=== PATIENT | male | born 1930 | race Caucasian/White ===

== ENCOUNTER 2017-12-11 17:09 | Inpatient (IN) | payer MEDICARE, OTHER ==
[~2017-12-11] VITALS: Ht 177.8 cm; Wt 81.1 kg
[2017-12-11 18:25] VITALS: BP 133/87; PULSE 69; RESP 19; TEMP 98.6; O2SAT 97
[2017-12-11 18:43] LABS: AUTOMATED NEUTROPHIL # 3.9 TH/MM3 (1.8-7.7); BASOPHIL # 0.1 TH/MM3 (0-0.2); BASOPHIL % 0.9 % (0.0-2.0); EOSINOPHIL # 0.1 TH/MM3 (0-0.4); EOSINOPHIL % 2.3 % (0.0-4.0); HEMATOCRIT 40.2 % (39.0-51.0); HEMOGLOBIN 13.8 GM/DL (13.0-17.0); LYMPH % 19.5 % (9.0-44.0); LYMPHOCYTE # 1.2 TH/MM3 (1.0-4.8); MEAN CELL VOLUME 91.5 FL (80.0-100.0); MEAN CORPUSCULAR HEMOGLOBIN 31.3 PG (27.0-34.0); MEAN CORPUSCULAR HGB CONC 34.2 % (32.0-36.0); MEAN PLATELET VOLUME 7.1 FL (7.0-11.0); MONO % 11.7 % (0.0-8.0); MONOCYTE # 0.7 TH/MM3 (0-0.9); NEUT % 65.6 % (16.0-70.0); PLATELET COUNT 277 TH/MM3 (150-450); RED BLOOD COUNT 4.39 MIL/MM3 (4.50-5.90); RED CELL DISTRIBUTION WIDTH 13.5 % (11.6-17.2); WHITE BLOOD COUNT 5.9 TH/MM3 (4.0-11.0)
[2017-12-11 18:56] LABS: AST (GOT) 21 U/L (15-37); BICARBONATE 26.3 MEQ/L (21.0-32.0); BLOOD UREA NITROGEN 22 MG/DL (7-18); CALCIUM 9.2 MG/DL (8.5-10.1); CHLORIDE 107 MEQ/L (98-107); GLOMERULAR FILTRATION RATE 58 ML/MIN (>89); GLUCOSE,RANDOM 102 MG/DL (74-106); SODIUM (NA) 139 MEQ/L (136-145)
[2017-12-11 19:05] LABS: ALKALINE PHOSPHATASE 83 U/L (45-117); ALT (GPT) 20 U/L (12-78); TOTAL BILIRUBIN ADULT 0.5 MG/DL (0.2-1.0); TOTAL PROTEIN 8.1 GM/DL (6.4-8.2)
[2017-12-11 19:06] LABS: ACETAMINOPHEN LESS THAN 2.0 MCG/ML (10.0-30.0)
--- NOTE | 2017-12-11 19:45 | PD ---
HPI Chief Complaint: Psychiatric Symptoms Time Seen by Provider: 19:33 Travel History International Travel<30 days: No Contact w/Intl Traveler<30days: No Traveled to known affect area: No History of Present Illness HPI 87-year-old male was Kristian acted and brought in for evaluation. Patient was having combative behavior, outbursts and anger behavior at home associate with dementia. Patient was Kristian acted and brought in for evaluation. Patient denies any headache. Patient denies any chest pain or shortness of breath. Patient denies abdominal pain. Patient denies any medical problem. Patient denies any alcohol or drug abuse. PFSH Past Medical History COPD: Yes Dementia: Yes Diminished Hearing: Yes Respiratory: Yes Tetanus Vaccination: Unknown Past Surgical History Surgical History: No Previous Surgery Eye Surgery: Yes (cataracts) Social History Alcohol Use: No Tobacco Use: No Substance Use: No Allergies-Medications (Allergen,Severity, Reaction): Coded Allergies: No Known Allergies (Verified Allergy, Mild, 12/11/17) Reported Meds & Prescriptions Reported Meds & Active Scripts Active Active Prescriptions or Reported Medications Unobtainable Review of Systems General / Constitutional: No: Fever Eyes: No: Visual changes HENT: No: Headaches Cardiovascular: No: Chest Pain or Discomfort Respiratory: No: Shortness of Breath Gastrointestinal: No: Abdominal Pain Genitourinary: No: Dysuria Musculoskeletal: No: Pain Skin: No Rash Neurologic: No: Weakness Psychiatric: No: Depression Endocrine: No: Polydipsia Hematologic/Lymphatic: No: Easy Bruising Physical Exam Narrative GENERAL: Well-nourished, well-developed patient. SKIN: Focused skin assessment warm/dry. HEAD: Normocephalic. EYES: No scleral icterus. No injection or drainage. NECK: Supple, trachea midline. No JVD or lymphadenopathy. CARDIOVASCULAR: Regular rate and rhythm without murmurs, gallops, or rubs. RESPIRATORY: Breath sounds equal bilaterally. No accessory muscle use. GASTROINTESTINAL: Abdomen soft, non-tender, nondistended. MUSCULOSKELETAL: No cyanosis, or edema. BACK: Nontender without obvious deformity. No CVA tenderness. Neurologic exam: Patient is awake and alert oriented to place and person. No obvious focal neurological deficit. Data Data Last Documented VS Vital Signs Date Time Temp Pulse Resp B/P (MAP) Pulse Ox O2 Delivery O2 Flow Rate FiO2 12/11/17 18:25 98.6 69 19 133/87 (102) 97 Room Air Orders Orders Complete Blood Count With Diff (12/11/17 17:54) Comprehensive Metabolic Panel (12/11/17 17:54) Thyroid Stimulating Hormone (12/11/17 17:54) Urinalysis - C+S If Indicated (12/11/17 17:54) Psych Screen (12/11/17 17:54) Drug Screen, Random Urine (12/11/17 17:54) Alcohol (Ethanol) (12/11/17 17:54) Salicylates (Aspirin) (12/11/17 17:54) Tylenol (Acetaminophen) (12/11/17 17:54) Labs Laboratory Tests Test 12/11/17 18:30 White Blood Count 5.9 TH/MM3 Red Blood Count 4.39 MIL/MM3 Hemoglobin 13.8 GM/DL Hematocrit 40.2 % Mean Corpuscular Volume 91.5 FL Mean Corpuscular Hemoglobin 31.3 PG Mean Corpuscular Hemoglobin Concent 34.2 % Red Cell Distribution Width 13.5 % Platelet Count 277 TH/MM3 Mean Platelet Volume 7.1 FL Neutrophils (%) (Auto) 65.6 % Lymphocytes (%) (Auto) 19.5 % Monocytes (%) (Auto) 11.7 % Eosinophils (%) (Auto) 2.3 % Basophils (%) (Auto) 0.9 % Neutrophils # (Auto) 3.9 TH/MM3 Lymphocytes # (Auto) 1.2 TH/MM3 Monocytes # (Auto) 0.7 TH/MM3 Eosinophils # (Auto) 0.1 TH/MM3 Basophils # (Auto) 0.1 TH/MM3 CBC Comment DIFF FINAL Differential Comment Blood Urea Nitrogen 22 MG/DL Creatinine 1.20 MG/DL Random Glucose 102 MG/DL Total Protein 8.1 GM/DL Albumin 4.0 GM/DL Calcium Level 9.2 MG/DL Alkaline Phosphatase 83 U/L Aspartate Amino Transf (AST/SGOT) 21 U/L Alanine Aminotransferase (ALT/SGPT) 20 U/L Total Bilirubin 0.5 MG/DL Sodium Level 139 MEQ/L Potassium Level 3.9 MEQ/L Chloride Level 107 MEQ/L Carbon Dioxide Level 26.3 MEQ/L Anion Gap 6 MEQ/L Estimat Glomerular Filtration Rate 58 ML/MIN Thyroid Stimulating Hormone 3rd Gen 1.720 uIU/ML Salicylates Level LESS THAN 1.7 MG/DL Acetaminophen Level LESS THAN 2.0 MCG/ML Ethyl Alcohol Level LESS THAN 3 MG/DL MDM Medical Decision Making Medical Screen Exam Complete: Yes Emergency Medical Condition: Yes Differential Diagnosis Differential diagnoses including acute exacerbation of dementia symptoms, psychosis, schizophrenia. Narrative Course 87-year-old male was Townsend acted for outbursts and anger behavior. History of dementia. Scripts Unable to Obtain Active Prescriptions or Reported Meds Suhail Lozada MD Dec 11, 2017 19:45
[2017-12-11] MEDS ORDERED: LORazepam 2 MG/ML VIAL IM ONE (20:30)
[2017-12-11] MEDS ORDERED: HALOPERIDOL LACTATE 5 MG/ML AMP IM ONE (20:30)
[2017-12-11 22:20] LABS: BILIRUBIN, URINE NEG (NEG); BLOOD, URINE NEG (NEG); GLUCOSE,URINE NEG (NEG); KETONE, URINE NEG (NEG); NITRITE,URINE NEG (NEG); PH, URINE 5.5 (5.0-8.5); URINE COLOR LIGHT-YELLOW (YELLW/STRAW); URINE LEUKOCYTE ESTERASE NEG (NEG)
[2017-12-12] MEDS ORDERED: HALOPERIDOL LACTATE 5 MG/ML AMP IM ONE (01:15)
[2017-12-12 03:41] VITALS: BP 155/74; PULSE 84; RESP 16; O2SAT 97
[2017-12-12 05:04] VITALS: BP 131/60; PULSE 64; RESP 16; TEMP 97.5; O2SAT 94
[2017-12-12] MEDS ORDERED: LORazepam 2 MG/ML VIAL - age > 65 yrs IM PRN (05:45)
[2017-12-12] MEDS ORDERED: LORazepam 0.5 MG TAB age > 65 yrs PO PRN (05:45)
[2017-12-12] MEDS ORDERED: ACETAMINOPHEN 325 MG TAB PO PRN (05:45)
[2017-12-12] MEDS ORDERED: diphenhydrAMINE HCL 50 MG/ML VIAL IM PRN (05:45)
[2017-12-12] MEDS ORDERED: diphenhydrAMINE HCL 50 MG CAP PO PRN (05:45)
[2017-12-12] MEDS ORDERED: diphenhydrAMINE HCL 50 MG/ML VIAL - HS PRN IM (05:45)
[2017-12-12] MEDS ORDERED: diphenhydrAMINE HCL 50 MG CAP - HS PRN PO (05:45)
[2017-12-12] MEDS ORDERED: MAGNESIUM HYDROXIDE SUSP 30 ML CUP PO PRN (05:45)
[2017-12-12] MEDS ORDERED: ALUMINUM/MAGNESIUM/SIMETH 30 ML CUP PO PRN (05:45)
[2017-12-12] MEDS ORDERED: hydrOXYzine HCL 50 MG TAB PO PRN (05:45)
[2017-12-12] MEDS: NICOTINE 21 MG/24 HR PATCH T-DERMAL SCH (09:00)
[2017-12-12] MEDS ORDERED: GALA12TA PO (10:48)
[2017-12-12] MEDS ORDERED: PRAZ2CAP PO (10:48)
[2017-12-12] MEDS ORDERED: MULT1TAB46 (10:48)
[2017-12-12] MEDS ORDERED: CITA20TA4 PO (10:48)
[2017-12-12] MEDS ORDERED: LOVA40TA PO (10:48)
[2017-12-12] MEDS ORDERED: RISP0.252 PO (10:48)
[2017-12-12] MEDS ORDERED: RANI150T PO (10:48)
[2017-12-12] MEDS ORDERED: GABA600T PO (10:48)
[2017-12-12] MEDS ORDERED: LORA1TAB12 PO (10:48)
[2017-12-12] MEDS ORDERED: TEMA15CA PO (10:48)
[2017-12-12] MEDS ORDERED: HALOPERIDOL 5 MG TAB PO ONE (12:30)
--- NOTE | 2017-12-12 12:59 | HHI.HP ---
Provisional Diagnosis Admission Date Dec 12, 2017 at 02:55 [place] I. Dementia with behavioral disturbances, Alzheimer's dementia late onset Certification of Person's Competence To Provide Express and Informed Consent I have personally examined Rolf Martinez , a person being served at [facility] on, Dec 12, 2017 12:43. Express and informed consent means consent voluntarily given in writing, by a competent person, after sufficient explanation and disclosure of the subject matter involved to enable the person to make a knowing and willful decision without any element of force, fraud, deceit, duress, or other form of constraint or coercion. This person is 18 years of age or older, is not now known to be incompetent to consent to treatment with a guardian advocate, and does not have a health care surrogate or proxy currently making medical treatment decisions. I have found this person to be one of the following: [] Competent to provide express and informed consent, as defined above, for voluntary admission to this facility and is competent to provide express and informed consent for treatment. He/she has the consistent capacity to make well reasoned, willful, and knowing decisions concerning his or her medical or mental health treatment. The person fully and consistently understands the purpose of the admission for examination/placement and is fully capable of personally exercising all rights assured [place] Incompetent to provide express and informed consent to voluntary admission , and this is incompetent to provide express and informed consent to treatment. The person must be transferred to involuntary status and a petition for a guardian advocate filed with the Circuit Court. [] Refusing to provide express and informed consent to voluntary admission but is competent to provide express and informed consent for treatment. The person must be discharged or transferred to involuntary status. Form shall be completed within 24 hours of a person's arrival at the receiving facility and filed in the clinical record of each person: 1. Admitted on a voluntary basis 2. Permitted to provide express and informed consent to his/her own treatment 3. Allowed to transfer from involuntary to voluntary status 4. Prior to permitting a person to consent to his or her own treatment after having been previously found incompetent to consent to treatment. History of Present Illness Capacity: Lacks Capacity HPI Patient is an 87-year-old white male who comes here under Townsend act by the [facility]'s office dated 12/11/17 at 1544 hrs. document reviewed stating this is the second time I responded to this address reference the subject having bad outbursts and anger issues associated with dementia elderly female has attempted to work with [employer] and other resources however still has not been able to sign anything in place for further assistance. Patient seen screened in the ED urine toxicology negative. At the present time patient sitting quietly in chair in day room nurse Kaiden present throughout session patient's calm with me though he has recently received a when necessary of Haldol and Benadryl for out of control behavior. Is calm but this time though diffusely confused to place time and situation has no recollection of his behaviors that brought him to this place. He continues to show exits seeking behavior is getting somewhat irritable with this. He denies suicidality denies voices or visions, denies past psychiatric contact. 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 At this time patient meets criteria for inpatient psychiatric hospitalization of the Townsend act I'll do first opinion request second opinion. It really does not have capacity thus I'll ask for healthcare surrogate and guardian advocate. He did need to meet with patient's caregiver and discuss with her diagnosis medication treatment and discharge planning and placement Review of Systems ROS Limitations: Altered Mental Status Except as stated in HPI: all other systems reviewed are Neg Past Psych History Psychological trauma history Difficult to ascertain due to cognitive deficit Violence risk - others (6 mos) Patient showing aggressive behavior towards caregiver Violence risk - self (6 mos) Low Substance Abuse History Drugs/Alcohol past 12 months Unknown at this time Past Family Social History Coded Allergies: No Known Allergies (Verified Allergy, Mild, 12/11/17) Reported Medications Risperidone (Risperidone) 0.25 Mg Tab, 0.25 MG PO TID, #30 TAB 0 Refills 12/12/17 Prazosin (Prazosin) 2 Mg Cap, 2 MG PO HS for Blood Pressure Management, #60 CAP 0 Refills 12/12/17 Temazepam (Temazepam) 15 Mg Cap, 15 MG PO HS Y for INSOMNIA, #30 CAP 0 Refills 12/12/17 Ranitidine (Ranitidine) 150 Mg Tab, 150 MG PO BID for Heartburn Management, #60 TAB 0 Refills 12/12/17 Lovastatin (Lovastatin) 40 Mg Tab, 40 MG PO HS for Cholesterol Management, #30 TAB 0 Refills 12/12/17 Multiple Vitamin (Multi Vitamin Daily) 1 Tab Tab 12/12/17 Lorazepam (Lorazepam) 1 Mg Tab, 1 MG PO BID, TAB 0 Refills 12/12/17 Galantamine (Galantamine) 12 Mg Tab, 24 MG PO DAILY for Alzheimer's Dementia, # 60 TAB 0 Refills 12/12/17 Gabapentin (Gabapentin) 600 Mg Tab, 600 MG PO BID, #60 TAB 0 Refills 12/12/17 Citalopram (Citalopram) 20 Mg Tab, 20 MG PO DAILY for Control Depression, #30 TAB 0 Refills 12/12/17 Current Medications Medications (Trade) Dose Ordered Sig/Alek Route Start Time Stop Time Status Last Admin (Ativan) 0.5 mg Q12H PRN PO 12/12/17 05:45 Future Hold (Ativan Inj) 0.5 mg Q12H PRN IM 12/12/17 05:45 Future Hold (Atarax) 50 mg Q6H PRN PO 12/12/17 05:45 Future Hold (Benadryl) 50 mg Q6H PRN PO 12/12/17 05:45 Future Hold (Benadryl Inj) 50 mg Q6H PRN IM 12/12/17 05:45 Future Hold (Benadryl) 50 mg HS PRN PO 12/12/17 05:45 Future Hold (Benadryl Inj) 50 mg HS PRN IM 12/12/17 05:45 Future Hold (Tylenol) 650 mg Q4H PRN PO 12/12/17 05:45 (Milk Of Magnesia Liq) 30 ml DAILY PRN PO 12/12/17 05:45 (Mag-Al Plus Susp Liq) 30 ml Q6H PRN PO 12/12/17 05:45 (Habitrol 21 Mg Patch.24 Hr) 1 patch DAILY T-DERMAL 12/12/17 09:00 Miscellaneous Information 1 HS T-DERMAL 12/12/17 21:00 Family Psych History Unknown at this time Social History Patient lives with caregiver Patient's Strengths (min. 2) Patient has good supporting community with caregiver, patient verbal Physical Exam Patient medically cleared ED patient sitting quietly in chair in dayroom he is in no acute distress, no respiratory distress, no complaints of abdominal pain. Patient moving all 4 extremities without difficulty Vital Signs Vital Signs Date Time Temp Pulse Resp B/P (MAP) Pulse Ox O2 Delivery O2 Flow Rate FiO2 12/12/17 05:04 97.5 64 16 131/60 (83) 94 12/12/17 03:41 Room Air I/O 12/12/17 12/12/17 12/13/17 08:00 16:00 00:00 Intake Total 0 ml Balance 0 ml Lab Results Test 12/11/17 18:30 12/11/17 22:07 White Blood Count 5.9 TH/MM3 Red Blood Count 4.39 MIL/MM3 Hemoglobin 13.8 GM/DL Hematocrit 40.2 % Mean Corpuscular Volume 91.5 FL Mean Corpuscular Hemoglobin 31.3 PG Mean Corpuscular Hemoglobin Concent 34.2 % Red Cell Distribution Width 13.5 % Platelet Count 277 TH/MM3 Mean Platelet Volume 7.1 FL Neutrophils (%) (Auto) 65.6 % Lymphocytes (%) (Auto) 19.5 % Monocytes (%) (Auto) 11.7 % Eosinophils (%) (Auto) 2.3 % Basophils (%) (Auto) 0.9 % Neutrophils # (Auto) 3.9 TH/MM3 Lymphocytes # (Auto) 1.2 TH/MM3 Monocytes # (Auto) 0.7 TH/MM3 Eosinophils # (Auto) 0.1 TH/MM3 Basophils # (Auto) 0.1 TH/MM3 CBC Comment DIFF FINAL Differential Comment Blood Urea Nitrogen 22 MG/DL Creatinine 1.20 MG/DL Random Glucose 102 MG/DL Total Protein 8.1 GM/DL Albumin 4.0 GM/DL Calcium Level 9.2 MG/DL Alkaline Phosphatase 83 U/L Aspartate Amino Transf (AST/SGOT) 21 U/L Alanine Aminotransferase (ALT/SGPT) 20 U/L Total Bilirubin 0.5 MG/DL Sodium Level 139 MEQ/L Potassium Level 3.9 MEQ/L Chloride Level 107 MEQ/L Carbon Dioxide Level 26.3 MEQ/L Anion Gap 6 MEQ/L Estimat Glomerular Filtration Rate 58 ML/MIN Thyroid Stimulating Hormone 3rd Gen 1.720 uIU/ML Salicylates Level LESS THAN 1.7 MG/DL Acetaminophen Level LESS THAN 2.0 MCG/ML Ethyl Alcohol Level LESS THAN 3 MG/DL Urine Color LIGHT-YELLOW Urine Turbidity CLEAR Urine pH 5.5 Urine Specific [place] 1.007 Urine Protein NEG mg/dL Urine Glucose (UA) NEG mg/dL Urine Ketones NEG mg/dL Urine Occult Blood NEG Urine Nitrite NEG Urine Bilirubin NEG Urine Urobilinogen LESS THAN 2.0 MG/DL Urine Leukocyte Esterase NEG Urine RBC 2 /hpf Urine WBC LESS THAN 1 /hpf Microscopic Urinalysis Comment CULT NOT INDICATED Urine Opiates Screen NEG Urine Barbiturates Screen NEG Urine Amphetamines Screen NEG Urine Benzodiazepines Screen NEG Urine Cocaine Screen NEG Urine Cannabinoids Screen NEG Mental Status Examination Appearance: Dirty Consciousness: Alert Orientation: Person Motor Activity: Normal gait Speech: Unremarkable Language: Adequate Fund of Knowledge: Adequate Attention and Concentration: Easily Distracted Memory: Impaired Mood: Other (euthymic to somewhat irritable and mildly oppositional) Affect: Other (good range and intensity) Thought Process & Associations: Disorganized Thought Content: Other (disorganized) Hallucination Type: None Delusion Type: None Suicidal Ideation: No Suicidal Plan: No Suicidal Intention: No Homicidal Ideation: No Homicidal Plan: No Homicidal Intention: No Insight: Poor Judgment: Poor Assessment & Plan Problem List: (1) DEMENTIA IN OTH DISEASES CLASSD ELSWHR W BEHAVIORAL DISTURB ICD Codes: F02.81 - DEMENTIA IN OTH DISEASES CLASSD ELSWHR W BEHAVIORAL DISTURB (2) ALZHEIMER'S DISEASE WITH LATE ONSET ICD Codes: G30.1 - ALZHEIMER'S DISEASE WITH LATE ONSET Assessment & Plan Estimated LOS: 5-7 days at this time patient meets Townsend criteria I'll lift first opinion request second opinion I also feel he patient does not have capacity thus I'll ask for healthcare surrogate and guardian advocate. We need to meet with patient's caregiver to discuss treatment efforts and appointment made finding appropriate placement for this gentleman Discharge Planning To be determined Request HC Surrog/Guard Advoc?: Yes Rolf Peter MD Dec 12, 2017 12:59
--- NOTE | 2017-12-12 13:49 | PD.CONS ---
HPI Service [facility] Hospitalists Consult Requested By Dr. 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 Patient was brought into the ER as a wing act after becoming agitated and violent at home. Patient currently in the inpatient psychiatric center we have been consulted for assistance in management of patient's medical conditions. Patient is a poor historian therefore information gathered from patient as well as prior charting. Patient appears confused and agitated but in no acute distress. Patient offers no medical complaints at this time. Patient denies chest pain, SOB, fevers, chills, N/V/D/C. Review of Systems ROS Limitations: Clinical Condition, Poor Historian Past Family Social History Past Medical History Alzheimer's dementia, CKD stage 3, arthritis, BPH and hyperlipidemia Past Surgical History cataract surgery Reported Medications Risperidone 0.25 Mg Tab 0.25 Mg PO TID Prazosin (Prazosin HCl) 2 Mg Cap 2 Mg PO HS Temazepam 15 Mg Cap 15 Mg PO HS PRN Ranitidine (Ranitidine HCl) 150 Mg Tab 150 Mg PO BID Lovastatin 40 Mg Tab 40 Mg PO HS Multi Vitamin Daily (Multiple Vitamin) 1 Tab Tab Lorazepam 1 Mg Tab 1 Mg PO BID Galantamine (Galantamine Hydrobromide) 12 Mg Tab 24 Mg PO DAILY Gabapentin 600 Mg Tab 600 Mg PO BID Citalopram (Citalopram Hydrobromide) 20 Mg Tab 20 Mg PO DAILY Allergies: Coded Allergies: No Known Allergies (Verified Allergy, Mild, 12/11/17) Family History Unable to obtain at this time Social History Patient lives at home with a caregiver no report of ETOH use, tobacco use or illicit drug use Physical Exam Vital Signs Vital Signs Date Time Temp Pulse Resp B/P (MAP) Pulse Ox O2 Delivery O2 Flow Rate FiO2 12/12/17 05:04 97.5 64 16 131/60 (83) 94 12/12/17 04:41 12/12/17 03:41 84 16 155/74 (101) 97 Room Air 12/11/17 18:25 98.6 69 19 133/87 (102) 97 Room Air 3/31/18 17:36 18 Physical Exam GENERAL: This is a confused elderly 87 year old male patient, in no apparent distress. SKIN: generalized thinning of skin HEAD: Atraumatic. Normocephalic. No temporal or scalp tenderness. EYES: Extraocular motions intact. No scleral icterus. No injection or drainage. CARDIOVASCULAR: Regular rate and rhythm RESPIRATORY: Clear to auscultation. Breath sounds equal bilaterally. GASTROINTESTINAL: Abdomen soft, non-tender, nondistended. MUSCULOSKELETAL: Extremities without clubbing, cyanosis, or edema. No joint tenderness, effusion, or edema noted. No calf tenderness. Negative Homans sign bilaterally. NEUROLOGICAL: confused. moves all 4 extremities spontaneously. no focal deficits noted Laboratory Laboratory Tests Test 12/11/17 18:30 12/11/17 22:07 White Blood Count 5.9 Red Blood Count 4.39 Hemoglobin 13.8 Hematocrit 40.2 Mean Corpuscular Volume 91.5 Mean Corpuscular Hemoglobin 31.3 Mean Corpuscular Hemoglobin Concent 34.2 Red Cell Distribution Width 13.5 Platelet Count 277 Mean Platelet Volume 7.1 Neutrophils (%) (Auto) 65.6 Lymphocytes (%) (Auto) 19.5 Monocytes (%) (Auto) 11.7 Eosinophils (%) (Auto) 2.3 Basophils (%) (Auto) 0.9 Neutrophils # (Auto) 3.9 Lymphocytes # (Auto) 1.2 Monocytes # (Auto) 0.7 Eosinophils # (Auto) 0.1 Basophils # (Auto) 0.1 CBC Comment DIFF FINAL Differential Comment Blood Urea Nitrogen 22 Creatinine 1.20 Random Glucose 102 Total Protein 8.1 Albumin 4.0 Calcium Level 9.2 Alkaline Phosphatase 83 Aspartate Amino Transf (AST/SGOT) 21 Alanine Aminotransferase (ALT/SGPT) 20 Total Bilirubin 0.5 Sodium Level 139 Potassium Level 3.9 Chloride Level 107 Carbon Dioxide Level 26.3 Anion Gap 6 Estimat Glomerular Filtration Rate 58 Thyroid Stimulating Hormone 3rd Gen 1.720 Salicylates Level LESS THAN 1.7 Acetaminophen Level LESS THAN 2.0 Ethyl Alcohol Level LESS THAN 3 Urine Color LIGHT-YELLOW Urine Turbidity CLEAR Urine pH 5.5 Urine Specific [place] 1.007 Urine Protein NEG Urine Glucose (UA) NEG Urine Ketones NEG Urine Occult Blood NEG Urine Nitrite NEG Urine Bilirubin NEG Urine Urobilinogen LESS THAN 2.0 Urine Leukocyte Esterase NEG Urine RBC 2 Urine WBC LESS THAN 1 Microscopic Urinalysis Comment CULT NOT INDICATED Urine Opiates Screen NEG Urine Barbiturates Screen NEG Urine Amphetamines Screen NEG Urine Benzodiazepines Screen NEG Urine Cocaine Screen NEG Urine Cannabinoids Screen NEG Result Diagram: 12/11/17182912/11/171829 Assessment and Plan Problem List: (1) DEMENTIA IN OTH DISEASES CLASSD ELSWHR W BEHAVIORAL DISTURB ICD Codes: F02.81 - DEMENTIA IN OTH DISEASES CLASSD ELSWHR W BEHAVIORAL DISTURB Plan: Management of dementia with behavior disturbance [facility] services (2) BPH (benign prostatic hyperplasia) ICD Codes: N40.0 - Benign prostatic hyperplasia without lower urinary tract symptoms Plan: continue patient's home Prazosin (Prazosin HCl) 2 Mg Cap 2 Mg PO HS (3) Hyperlipidemia ICD Codes: E78.5 - Hyperlipidemia, unspecified Plan: Continue patient's home lovastatin (4) Arthritis ICD Codes: M19.90 - Unspecified osteoarthritis, unspecified site Plan: acetaminophen as needed for pain Assessment and Plan Patient examined. Assessment and plan formulated with Kylah Hogan PA-C. I agree with the above. Kylah Hogan Dec 12, 2017 13:49 Mart Beckett DO Dec 16, 2017 11:34
[2017-12-12] MEDS ORDERED: GALA24CA PO (14:25)
[2017-12-12] MEDS: GALANTAMINE HYDROBROMIDE 4 MG TAB PO SCH ×2 (14:27→21:32)
[2017-12-12 18:22] VITALS: BP 152/85; PULSE 88; RESP 18; TEMP 98; O2SAT 95
[2017-12-12] MEDS: LORazepam 0.5 MG TAB age > 65 yrs PO PRN (19:37)
[2017-12-12] MEDS: REMOVE OLD NICOTINE PATCH T-DERMAL SCH (21:00)
[2017-12-12] MEDS: FAMOTIDINE 20 MG TAB PO SCH (21:31)
[2017-12-12] MEDS: GABAPENTIN 300 MG CAP PO SCH (21:32)
[2017-12-12] MEDS: PRAZOSIN HCL 2 MG CAP PO SCH (21:32)
[2017-12-12] MEDS: PRAVASTATIN SOD 40 MG TAB PO SCH (21:32)
[2017-12-13 05:36] VITALS: BP 125/60; PULSE 90; RESP 16; TEMP 98.3; O2SAT 96
[2017-12-13] MEDS: GABAPENTIN 300 MG CAP PO SCH ×2 (08:58→21:14)
[2017-12-13] MEDS: GALANTAMINE HYDROBROMIDE 4 MG TAB PO SCH ×2 (08:58→21:13)
[2017-12-13] MEDS: CITALOPRAM HYDROBROMIDE 20 MG TAB PO SCH (08:58)
[2017-12-13] MEDS: FAMOTIDINE 20 MG TAB PO SCH (08:58)
[2017-12-13] MEDS: NICOTINE 21 MG/24 HR PATCH T-DERMAL SCH (09:00)
[2017-12-13 09:59] LABS: BICARBONATE 29.3 MEQ/L (21.0-32.0); BLOOD UREA NITROGEN 25 MG/DL (7-18); CALCIUM 8.8 MG/DL (8.5-10.1); CHLORIDE 106 MEQ/L (98-107); CREATININE 1.26 MG/DL (0.60-1.30); GLOMERULAR FILTRATION RATE 54 ML/MIN (>89); GLUCOSE,RANDOM 111 MG/DL (74-106); SODIUM (NA) 142 MEQ/L (136-145)
[2017-12-13 10:00] LABS: CHOLESTEROL 169 MG/DL (120-200); TRIGLYCERIDES 72 MG/DL (42-150)
[2017-12-13 10:02] LABS: CHOLESTEROL/ HDL RATIO 2.96 RATIO; LDL CHOLESTEROL 98 MG/DL (0-99)
--- NOTE | 2017-12-13 11:29 | HHI.PYPN ---
Subjective Remarks Patient seen for follow up, chart reviewed. Discussion nursing staff reported the patient required ETO 1 yesterday which she received Haldol 5 mg IM, continues to be noted to be c--onfused but was in good spirits this morning. Patient was found lying hospital bed noted B, cooperative. Patient continues to be alert and oriented only to person states that he did not know why he is here but was able to mention he is in the hospital. Patient reports that Tony domiciled with girlfriend, Sena [phone], recalls being brought to the hospital by police but was able to recall reason why he was brought to the hospital. Patient states he did not have any problems or issues at home did not recall being combative or angry at home. Patient denies any mood symptoms denies any perceptual service of delusions. Patient reports feeling "alright at this time denying SI or HI. Review of Systems Except as stated in HPI: all other systems reviewed are Neg Mental Status Examination Appearance: Disheveled Consciousness: Alert Orientation: Person Motor Activity: Normal gait Speech: Unremarkable Language: Adequate Fund of Knowledge: Adequate Attention and Concentration: Easily Distracted Memory: Impaired Mood: Appropriate Affect: Appropriate Thought Process & Associations: Disorganized Thought Content: Other (disorganized) Hallucination Type: None Delusion Type: None Suicidal Ideation: No Suicidal Plan: No Suicidal Intention: No Homicidal Ideation: No Homicidal Plan: No Homicidal Intention: No Insight: Poor Judgment: Poor Results Labs Labs reviewed. Test 12/13/17 08:14 Blood Urea Nitrogen 25 MG/DL Creatinine 1.26 MG/DL Random Glucose 111 MG/DL Calcium Level 8.8 MG/DL Sodium Level 142 MEQ/L Potassium Level 3.7 MEQ/L Chloride Level 106 MEQ/L Carbon Dioxide Level 29.3 MEQ/L Anion Gap 7 MEQ/L Estimat Glomerular Filtration Rate 54 ML/MIN Triglycerides Level 72 MG/DL Cholesterol Level 169 MG/DL LDL Cholesterol 98 MG/DL HDL Cholesterol 57.0 MG/DL Cholesterol/HDL Ratio 2.96 RATIO Vitals/IOs Vital Signs Date Time Temp Pulse Resp B/P (MAP) Pulse Ox O2 Delivery O2 Flow Rate FiO2 12/13/17 05:36 98.3 90 16 125/60 (81) 96 12/12/17 03:41 Room Air Intake and Output 412/13/17 12/14/17 08:00 16:00 00:00 Intake Total 0 ml Balance 0 ml Assessment & Plan Problem List: (1) DEMENTIA IN OTH DISEASES CLASSD ELSWHR W BEHAVIORAL DISTURB ICD Codes: F02.81 - DEMENTIA IN OTH DISEASES CLASSD ELSWHR W BEHAVIORAL DISTURB (2) ALZHEIMER'S DISEASE WITH LATE ONSET ICD Codes: G30.1 - ALZHEIMER'S DISEASE WITH LATE ONSET Assessment & Plan Patient this time continues to be confused, alert and oriented only to person, had required ETO last evening due to behavioral disturbances but none noted at this morning and noted to be cooperative with staff. We will continue current treatment, continue to monitor mood and behavior. Collateral formation pending from family (daughter - Luzmaria [phone]). Discharge planning in progress. Second opinion completed for involuntary hospitalization. Justification for Cont. Inpt. At risk of further composition at lower level of care. Request HC Surrog/Guard Advoc?: Yes Ananda Weiner MD Dec 13, 2017 11:29
[2017-12-13 16:27] LABS: HEMOGLOBIN A1C 5.4 % (4.3-6.0)
[2017-12-13 18:20] VITALS: BP 123/60; PULSE 81; RESP 18; TEMP 97.3; O2SAT 96
[2017-12-13] MEDS: REMOVE OLD NICOTINE PATCH T-DERMAL SCH (21:00)
[2017-12-13 21:11] VITALS: BP 148/67; PULSE 68
[2017-12-13] MEDS: PRAVASTATIN SOD 40 MG TAB PO SCH (21:13)
[2017-12-13] MEDS: PRAZOSIN HCL 2 MG CAP PO SCH (21:14)
[2017-12-13] MEDS: LORazepam 0.5 MG TAB age > 65 yrs PO PRN (21:47)
[2017-12-14 06:09] VITALS: BP 134/56; PULSE 70; RESP 17; TEMP 97.4; O2SAT 95
[2017-12-14] MEDS: GABAPENTIN 300 MG CAP PO SCH ×2 (08:44→21:20)
[2017-12-14] MEDS: CITALOPRAM HYDROBROMIDE 20 MG TAB PO SCH (08:44)
[2017-12-14] MEDS: GALANTAMINE HYDROBROMIDE 4 MG TAB PO SCH ×2 (08:44→21:20)
[2017-12-14] MEDS: FAMOTIDINE 20 MG TAB PO SCH (08:44)
[2017-12-14] MEDS: NICOTINE 21 MG/24 HR PATCH T-DERMAL SCH (09:00)
[2017-12-14] MEDS: LORazepam 2 MG/ML VIAL - age > 65 yrs IM PRN (09:44)
[2017-12-14] MEDS ORDERED: HALOPERIDOL LACTATE 5 MG/ML AMP ONE (11:04)
[2017-12-14] MEDS ORDERED: HALOPERIDOL LACTATE 5 MG/ML AMP IM ONE (11:15)
--- NOTE | 2017-12-14 13:12 | HHI.PYPN ---
Subjective Remarks Patient seen for follow-up, chart reviewed. Discussion nursing staff reported the patient somewhat irritable this morning, exit seeking, and calling his girlfriend many times and noted to be agitated after phone calls. Patient was given 0.5 mg of Ativan IM earlier this morning due to irritability and behavior. Patient was alcohol was found to ambulate on the unit patient. And noted to be needing redirection constantly as patient is demanding to be discharged becoming more irritable and agitated which patient had required Haldol 2.5 mg IM 1 for behavior. Patient's daughter was contacted and reviewed with starting of quetiapine 12.5 mg p.o. twice daily which she agreed to she is patient's healthcare surrogate. Review of Systems Except as stated in HPI: all other systems reviewed are Neg Mental Status Examination Appearance: Disheveled Consciousness: Alert Orientation: Person Motor Activity: Normal gait Speech: Unremarkable Language: Adequate Fund of Knowledge: Adequate Attention and Concentration: Easily Distracted Memory: Impaired Mood: Irritable Affect: Irritable Thought Process & Associations: Disorganized Thought Content: Preoccupations (Patient started on discharge) Hallucination Type: None Delusion Type: None Suicidal Ideation: No Suicidal Plan: No Suicidal Intention: No Homicidal Ideation: No Homicidal Plan: No Homicidal Intention: No Insight: Poor Judgment: Poor Results Vitals/IOs Vital Signs Date Time Temp Pulse Resp B/P (MAP) Pulse Ox O2 Delivery O2 Flow Rate FiO2 12/14/17 06:09 97.4 70 17 134/56 (82) 95 12/12/17 03:41 Room Air Intake and Output 12/14/17 12/14/17 12/15/17 08:00 16:00 00:00 Intake Total 120 ml Balance 120 ml Assessment & Plan Problem List: (1) DEMENTIA IN OTH DISEASES CLASSD ELSWHR W BEHAVIORAL DISTURB ICD Codes: F02.81 - DEMENTIA IN OTH DISEASES CLASSD ELSWHR W BEHAVIORAL DISTURB (2) ALZHEIMER'S DISEASE WITH LATE ONSET ICD Codes: G30.1 - ALZHEIMER'S DISEASE WITH LATE ONSET Assessment & Plan Patient this time continues to be disoriented alert and oriented only to person , denying to be discharged with noted irritability and agitation which patient required ETO. We will start quetiapine 12.5 mg p.o. twice daily for mood stabilization, continue rest of medications. Continue monitor with behavior. Discharge planning in progress. Justification for Cont. Inpt. At risk for further decompensation if at lower level of care Discharge Planning Patient to be discharged to nursing facility once one is acquired Request HC Surrog/Guard Advoc?: Yes Ananda Weiner MD Dec 14, 2017 13:12
--- NOTE | 2017-12-14 16:38 | EKG ---
Date Performed: 12/13/2017 Time Performed: 13:56:25 PTAGE: 87 years EKG: Sinus rhythm Since previous tracing, no significant change noted NORMAL ECG PREVIOUS TRACING : 08/14/2003 15.40 DOCTOR: Gume Lopez Interpretating Date/Time 12/14/2017 16:37:02
[2017-12-14 18:17] VITALS: BP 120/67; PULSE 60; RESP 16; TEMP 98.4; O2SAT 96
[2017-12-14] MEDS: REMOVE OLD NICOTINE PATCH T-DERMAL SCH (21:00)
[2017-12-14] MEDS: LORazepam 0.5 MG TAB age > 65 yrs PO PRN (21:19)
[2017-12-14] MEDS: PRAZOSIN HCL 2 MG CAP PO SCH (21:20)
[2017-12-14] MEDS: QUEtiapine FUMARATE 25 MG TAB PO SCH (21:20)
[2017-12-14] MEDS: PRAVASTATIN SOD 40 MG TAB PO SCH (21:20)
[2017-12-15 06:22] VITALS: BP 115/68; PULSE 59; RESP 16; TEMP 97.3; O2SAT 96
[2017-12-15] MEDS: GALANTAMINE HYDROBROMIDE 4 MG TAB PO SCH ×2 (08:26→20:56)
[2017-12-15] MEDS: FAMOTIDINE 20 MG TAB PO SCH (08:26)
[2017-12-15] MEDS: GABAPENTIN 300 MG CAP PO SCH ×2 (08:26→20:58)
[2017-12-15] MEDS: QUEtiapine FUMARATE 25 MG TAB PO SCH ×2 (08:27→20:57)
[2017-12-15] MEDS: CITALOPRAM HYDROBROMIDE 20 MG TAB PO SCH (08:30)
[2017-12-15] MEDS: NICOTINE 21 MG/24 HR PATCH T-DERMAL SCH (09:00)
--- NOTE | 2017-12-15 14:43 | HHI.PYPN ---
Subjective Remarks Patient seen for follow up, chart reviewed. Discussion nursing staff reported the patient slept well no behavioral disturbances since yesterday. Patient had been required to have been put in seclusion due to agitated behavior yesterday. Patient was found sitting in day room reading the newspaper B, cooperative. Patient states that he was sleeping well, noted to be somewhat disorganized during interview, reports eating and drinking well with no physical complaints at this time. Patient continues to require redirection, continues to be alert and oriented only to person and that he is in the hospital. Patient with no behavioral disturbances today. Patient recently started on quetiapine yesterday which patient is adherent to medications today. Review of Systems Except as stated in HPI: all other systems reviewed are Neg Mental Status Examination Appearance: Appropriate Consciousness: Alert Orientation: Person Motor Activity: Normal gait Speech: Unremarkable Language: Adequate Fund of Knowledge: Adequate Attention and Concentration: Easily Distracted Memory: Impaired Mood: Appropriate Affect: Appropriate Thought Process & Associations: Disorganized Thought Content: Other Hallucination Type: None Delusion Type: None Suicidal Ideation: No Suicidal Plan: No Suicidal Intention: No Homicidal Ideation: No Homicidal Plan: No Homicidal Intention: No Insight: Poor Judgment: Poor Results Vitals/IOs Vital Signs Date Time Temp Pulse Resp B/P (MAP) Pulse Ox O2 Delivery O2 Flow Rate FiO2 12/15/17 06:22 97.3 59 16 115/68 (84) 96 12/12/17 03:41 Room Air Assessment & Plan Problem List: (1) DEMENTIA IN OTH DISEASES CLASSD ELSWHR W BEHAVIORAL DISTURB ICD Codes: F02.81 - DEMENTIA IN OTH DISEASES CLASSD ELSWHR W BEHAVIORAL DISTURB (2) ALZHEIMER'S DISEASE WITH LATE ONSET ICD Codes: G30.1 - ALZHEIMER'S DISEASE WITH LATE ONSET Assessment & Plan Patient at this time continues with disorientation secondary to neurocognitive deficits, no behavioral disturbances since yesterday. Continue current treatment, continue monitor mood and behavior. Patient will present to mental health court tomorrow for petition for involuntary hospitalization. Treatment team currently exploring options for patient to be referred to a nursing facility. Discharge planning in progress. Justification for Cont. Inpt. At risk for further decompensation if at lower level of care Request HC Surrog/Guard Advoc?: Yes Ananda Weiner MD Dec 15, 2017 14:43
[2017-12-15 15:48] VITALS: BP 126/61; PULSE 64; RESP 17; TEMP 97.6; O2SAT 96
[2017-12-15] MEDS: LORazepam 0.5 MG TAB age > 65 yrs PO PRN (18:30)
[2017-12-15] MEDS: PRAVASTATIN SOD 40 MG TAB PO SCH (20:56)
[2017-12-15] MEDS: PRAZOSIN HCL 2 MG CAP PO SCH (20:58)
[2017-12-15] MEDS: REMOVE OLD NICOTINE PATCH T-DERMAL SCH (21:00)
[2017-12-16 06:35] VITALS: PULSE 57; RESP 15; TEMP 97.8; O2SAT 98
[2017-12-16] MEDS: GABAPENTIN 300 MG CAP PO SCH ×2 (08:27→20:52)
[2017-12-16] MEDS: FAMOTIDINE 20 MG TAB PO SCH (08:27)
[2017-12-16] MEDS: QUEtiapine FUMARATE 25 MG TAB PO SCH ×2 (08:28→20:52)
[2017-12-16] MEDS: CITALOPRAM HYDROBROMIDE 20 MG TAB PO SCH (08:28)
[2017-12-16] MEDS: GALANTAMINE HYDROBROMIDE 4 MG TAB PO SCH ×2 (08:28→20:52)
[2017-12-16] MEDS: NICOTINE 21 MG/24 HR PATCH T-DERMAL SCH (08:34)
[2017-12-16] MEDS: LORazepam 0.5 MG TAB age > 65 yrs PO PRN (13:34)
--- NOTE | 2017-12-16 15:01 | HHI.PYPN ---
Subjective Remarks Patient seen for follow, chart reviewed. Discussion nursing staff reported the patient continues to be exit seeking somewhat irritable but redirectable. Patient was taken to mental health court today which patient was upset that patient was retained on a continuance denying being aggressive toward his girlfriend. Patient was later seen on the unit noted B, cooperative initially becoming more irritable throughout interview as patient was demanding discharge and not agreeable to the reasons that brought him to the hospital. Patient noted to be a exit seeking and irritable but not aggressive or agitated but has required Ativan on occasion to help address his irritability. Review of Systems Except as stated in HPI: all other systems reviewed are Neg Mental Status Examination Appearance: Appropriate Consciousness: Alert Orientation: Person Motor Activity: Normal gait Speech: Unremarkable Language: Adequate Fund of Knowledge: Adequate Attention and Concentration: Easily Distracted Memory: Impaired Mood: Appropriate, Irritable Affect: Irritable Thought Process & Associations: Goal directed Thought Content: Preoccupations (With discharge), Other Hallucination Type: None Delusion Type: None Suicidal Ideation: No Suicidal Plan: No Suicidal Intention: No Homicidal Ideation: No Homicidal Plan: No Homicidal Intention: No Insight: Poor Judgment: Poor Results Vitals/IOs Vital Signs Date Time Temp Pulse Resp B/P (MAP) Pulse Ox O2 Delivery O2 Flow Rate FiO2 12/16/17 06:35 97.8 57 15 98 Automatic Cuff Intake and Output 12/16/17 12/16/17 12/17/17 08:00 16:00 00:00 Intake Total 0 ml Balance 0 ml Assessment & Plan Problem List: (1) DEMENTIA IN OTH DISEASES CLASSD ELSWHR W BEHAVIORAL DISTURB ICD Codes: F02.81 - DEMENTIA IN OTH DISEASES CLASSD ELSWHR W BEHAVIORAL DISTURB (2) ALZHEIMER'S DISEASE WITH LATE ONSET ICD Codes: G30.1 - ALZHEIMER'S DISEASE WITH LATE ONSET Assessment & Plan Patient this time continues to be alert and oriented only to person and place, denying use, recent aggressive behavior in circumstances that brought him to the hospital. Patient continues to require redirection due to irritability and exit seeking behavior. We will decrease quetiapine to 25 mg p.o. twice daily for mood stabilization. Continue rest of medications. Continue monitor mood and behavior. Discharge planning in progress. Justification for Cont. Inpt. At risk for further decompensation if at lower level of care Request HC Surrog/Guard Advoc?: Yes Ananda Weiner MD Dec 16, 2017 15:01
[2017-12-16 18:18] VITALS: BP 137/64; PULSE 62; RESP 16; TEMP 98.6; O2SAT 96
[2017-12-16] MEDS: REMOVE OLD NICOTINE PATCH T-DERMAL SCH (20:50)
[2017-12-16] MEDS: PRAVASTATIN SOD 40 MG TAB PO SCH (20:52)
[2017-12-16] MEDS: PRAZOSIN HCL 2 MG CAP PO SCH (20:52)
[2017-12-17 04:51] VITALS: PULSE 51; RESP 16; TEMP 98.5; O2SAT 96
[2017-12-17] MEDS: NICOTINE 21 MG/24 HR PATCH T-DERMAL SCH (09:00)
[2017-12-17] MEDS: GABAPENTIN 300 MG CAP PO SCH ×2 (10:38→21:38)
[2017-12-17] MEDS: GALANTAMINE HYDROBROMIDE 4 MG TAB PO SCH ×2 (10:39→21:37)
[2017-12-17] MEDS: QUEtiapine FUMARATE 25 MG TAB PO SCH ×2 (10:40→21:38)
[2017-12-17] MEDS: CITALOPRAM HYDROBROMIDE 20 MG TAB PO SCH (10:41)
[2017-12-17] MEDS: FAMOTIDINE 20 MG TAB PO SCH (10:41)
--- NOTE | 2017-12-17 16:11 | HHI.PYPN ---
Subjective Remarks Patient seen for follow, chart reviewed. Discussion nursing staff reported the patient has a, cooperative, compliant with medications with no behavioral disturbances. Patient was found ambulating on the unit noted B, cooperative. Patient continues to be perseverative on discharge and requesting to be allowed to go home, continues with poor insight into events that brought her to the hospital. Patient continues to be alert and oriented only to person and place. Patient noted to be irritable 1 or present discharge but now more easily redirectable, with no behavioral disturbances or agitation. Review of Systems Except as stated in HPI: all other systems reviewed are Neg Mental Status Examination Appearance: Appropriate Consciousness: Alert Orientation: Person Motor Activity: Normal gait Speech: Unremarkable Language: Adequate Fund of Knowledge: Adequate Attention and Concentration: Easily Distracted Memory: Impaired Mood: Appropriate, Irritable Affect: Irritable Thought Process & Associations: Goal directed Thought Content: Preoccupations (With discharge), Other Hallucination Type: None Delusion Type: None Suicidal Ideation: No Suicidal Plan: No Suicidal Intention: No Homicidal Ideation: No Homicidal Plan: No Homicidal Intention: No Insight: Poor Judgment: Poor Results Vitals/IOs Vital Signs Date Time Temp Pulse Resp B/P (MAP) Pulse Ox O2 Delivery O2 Flow Rate FiO2 12/17/17 04:51 98.5 51 16 96 Manual Cuff/Auscultation Intake and Output 12/17/17 12/17/17 12/18/17 08:00 16:00 00:00 Intake Total 240 ml Balance 240 ml Assessment & Plan Problem List: (1) DEMENTIA IN OTH DISEASES CLASSD ELSWHR W BEHAVIORAL DISTURB ICD Codes: F02.81 - DEMENTIA IN OTH DISEASES CLASSD ELSWHR W BEHAVIORAL DISTURB (2) ALZHEIMER'S DISEASE WITH LATE ONSET ICD Codes: G30.1 - ALZHEIMER'S DISEASE WITH LATE ONSET Assessment & Plan Patient this time continues to request discharge but is now easier to be redirected, though behavioral services or agitation. Patient compliant with medications, patient pleasant during conversation other than speaking about discharge. Continue current treatment. Continue monitor mood and behavior. Patient's daughter actively looking for placement for patient. Discharge planning in progress. Justification for Cont. Inpt. At risk for further decompensation if at lower level of care Discharge Planning To be determined. Request HC Surrog/Guard Advoc?: Yes Ananda Weiner MD Dec 17, 2017 16:11
[2017-12-17] MEDS: hydrOXYzine HCL 50 MG TAB PO PRN (17:20)
[2017-12-17 17:36] VITALS: BP 150/70; PULSE 57; RESP 16; TEMP 97.9; O2SAT 96
[2017-12-17] MEDS: LORazepam 2 MG/ML VIAL - age > 65 yrs IM PRN (18:50)
[2017-12-17] MEDS: REMOVE OLD NICOTINE PATCH T-DERMAL SCH (21:00)
[2017-12-17] MEDS: PRAZOSIN HCL 2 MG CAP PO SCH (21:37)
[2017-12-17] MEDS: diphenhydrAMINE HCL 50 MG CAP - HS PRN PO (21:38)
[2017-12-17] MEDS: PRAVASTATIN SOD 40 MG TAB PO SCH (21:38)
[2017-12-17] MEDS: LORazepam 0.5 MG TAB age > 65 yrs PO PRN (21:38)
[2017-12-18] VITALS (8 sets, daily range): BP systolic 102–200; BP diastolic 55–91; PULSE 57–83; RESP 15–18; TEMP 97.5–98.1; O2SAT 92–98
--- NOTE | 2017-12-18 01:45 | RADRPT ---
EXAM DATE/TIME: 12/18/2017 01:12 [facility] COMPARISON: No previous studies available for comparison. INDICATIONS : Fell hitting back of head. RADIATION DOSE: 56.34 CTDIvol (mGy) MEDICAL HISTORY : Dementia. SURGICAL HISTORY : None. ENCOUNTER: Initial ACUITY: 1 day PAIN SCALE: Non-responsive LOCATION: cranial TECHNIQUE: Multiple contiguous axial images were obtained of the head. Using automated exposure control and adj ustment of the mA and/or kV according to patient size, radiation dose was kept as low as reasonably a chievable to obtain optimal diagnostic quality images. DICOM format image data is available electro nically for review and comparison. FINDINGS: CEREBRUM: Diffuse prominence of the ventricles, sulci, and cisterns. No evidence of midline shift, mass lesion , hemorrhage or acute infarction. No extra-axial fluid collections are seen. POSTERIOR FOSSA: The cerebellum and brainstem are intact. The 4th ventricle is midline. The cerebellopontine angle i s unremarkable. EXTRACRANIAL: The visualized portion of the orbits is intact. SKULL: The calvaria is intact. No evidence of skull fracture. CONCLUSION: Diffuse atrophy. No acute intracranial findings. Skip Casiano MD on December 18, 2017 at 1:42 Board Certified Radiologist. This report was verified electronically.
[2017-12-18] MEDS: GALANTAMINE HYDROBROMIDE 4 MG TAB PO SCH ×2 (08:27→20:41)
[2017-12-18] MEDS: FAMOTIDINE 20 MG TAB PO SCH (08:27)
[2017-12-18] MEDS: NICOTINE 21 MG/24 HR PATCH T-DERMAL SCH (08:27)
[2017-12-18] MEDS: CITALOPRAM HYDROBROMIDE 20 MG TAB PO SCH (08:27)
[2017-12-18] MEDS: GABAPENTIN 300 MG CAP PO SCH ×2 (08:27→20:41)
[2017-12-18] MEDS: QUEtiapine FUMARATE 25 MG TAB PO SCH ×2 (08:27→20:41)
--- NOTE | 2017-12-18 09:37 | HHI.PYPN ---
Subjective Remarks Patient seen for follow, chart reviewed. Discussion nursing staff reported the patient yesterday was noted to be screaming and cursing, not redirectable last evening but also was noted to have fallen getting up from bed which patient suffered a small abrasion on the back of his head, and brain CT was negative. Patient was found sitting on hospital bed noted, cooperative today. Patient states that he is feeling "fine" does not recall having had a fall last evening , states feeling steady on his feet, denying any dizziness or unsteady gait. Patient continues with baseline disorientation. Patient agrees to take a shower there this evening. Review of Systems Except as stated in HPI: all other systems reviewed are Neg Mental Status Examination Appearance: Appropriate Consciousness: Alert Orientation: Person Motor Activity: Normal gait Speech: Unremarkable Language: Adequate Fund of Knowledge: Adequate Attention and Concentration: Easily Distracted Memory: Impaired Mood: Appropriate, Irritable Affect: Irritable Thought Process & Associations: Goal directed Thought Content: Preoccupations (With discharge), Other Hallucination Type: None Delusion Type: None Suicidal Ideation: No Suicidal Plan: No Suicidal Intention: No Homicidal Ideation: No Homicidal Plan: No Homicidal Intention: No Insight: Poor Judgment: Poor Results Vitals/IOs Vital Signs Date Time Temp Pulse Resp B/P (MAP) Pulse Ox O2 Delivery O2 Flow Rate FiO2 12/18/17 06:00 98.1 61 16 136/75 (95) 96 12/18/17 00:30 21 Intake and Output 12/18/17 12/18/17 12/18/17 07:59 15:59 23:59 Output Total 750 ml Balance -750 ml Assessment & Plan Problem List: (1) DEMENTIA IN OTH DISEASES CLASSD ELSWHR W BEHAVIORAL DISTURB ICD Codes: F02.81 - DEMENTIA IN OTH DISEASES CLASSD ELSWHR W BEHAVIORAL DISTURB (2) ALZHEIMER'S DISEASE WITH LATE ONSET ICD Codes: G30.1 - ALZHEIMER'S DISEASE WITH LATE ONSET Assessment & Plan Patient this time continues with baseline disorganization and confusion likely secondary to neurocognitive deficits from dementia. Patient continues discharge focused and wanted to return back home but today more redirectable not requiring ETO's since yesterday, patient to continue on fall precautions. Continue medication regimen, continue monitor for orthostatic hypotension. Discharge planning in progress. Justification for Cont. Inpt. At risk for further decompensation if at lower level of care Discharge Planning To be determined Request HC Surrog/Guard Advoc?: Yes Ananda Weiner MD Dec 18, 2017 09:37
[2017-12-18] MEDS: PRAVASTATIN SOD 40 MG TAB PO SCH (20:41)
[2017-12-18] MEDS: PRAZOSIN HCL 2 MG CAP PO SCH (20:41)
[2017-12-18] MEDS: REMOVE OLD NICOTINE PATCH T-DERMAL SCH (20:42)
[2017-12-19 02:30] VITALS: BP 150/68; PULSE 66; RESP 16; TEMP 98; O2SAT 93
[2017-12-19 06:00] VITALS: BP 138/63; PULSE 58; RESP 14; TEMP 97.7; O2SAT 97
[2017-12-19] MEDS: NICOTINE 21 MG/24 HR PATCH T-DERMAL SCH (09:00)
[2017-12-19] MEDS: GALANTAMINE HYDROBROMIDE 4 MG TAB PO SCH ×2 (09:15→20:46)
[2017-12-19] MEDS: FAMOTIDINE 20 MG TAB PO SCH (09:15)
[2017-12-19] MEDS: GABAPENTIN 300 MG CAP PO SCH ×2 (09:15→20:47)
[2017-12-19] MEDS: QUEtiapine FUMARATE 25 MG TAB PO SCH ×2 (09:16→20:46)
[2017-12-19] MEDS: CITALOPRAM HYDROBROMIDE 20 MG TAB PO SCH (09:16)
[2017-12-19] MEDS ORDERED: HALOPERIDOL LACTATE 5 MG/ML AMP ONE (11:57)
[2017-12-19] MEDS ORDERED: HALOPERIDOL LACTATE 5 MG/ML AMP IM ONE (12:00)
[2017-12-19] MEDS ORDERED: LORazepam 2 MG/ML VIAL IM ONE (12:00)
--- NOTE | 2017-12-19 13:33 | HHI.PYPN ---
Subjective Remarks Patient seen for follow up; chart reviewed. Discussion with nursing staff reported that patient still perseverative on discharge, and noted to be agitated when addressing this with staff. Patient was found sitting hospital bed continued to be alert and oriented only to person with poor recent memory as patient was denying recent fall a day and a half ago and despite reiteration of reasons why he is in the hospital or events that happened recently patient continues to deny and be focused on discharge. Patient today was found attempting to call the police and had to be put back on phone restrictions. Patient later in the office noted to become agitated and required ETO of Haldol 5mg/Ativan 2 mg IM x 1. Review of Systems Except as stated in HPI: all other systems reviewed are Neg Mental Status Examination Appearance: Appropriate Consciousness: Alert Orientation: Person Motor Activity: Normal gait Speech: Unremarkable Language: Adequate Fund of Knowledge: Adequate Attention and Concentration: Easily Distracted Memory: Impaired Mood: Appropriate, Irritable Affect: Irritable Thought Process & Associations: Goal directed Thought Content: Preoccupations (With discharge), Other Hallucination Type: None Delusion Type: None Suicidal Ideation: No Suicidal Plan: No Suicidal Intention: No Homicidal Ideation: No Homicidal Plan: No Homicidal Intention: No Insight: Poor Judgment: Poor Results Vitals/IOs Vital Signs Date Time Temp Pulse Resp B/P (MAP) Pulse Ox O2 Delivery O2 Flow Rate FiO2 12/19/17 06:00 97.7 58 14 138/63 (88) 97 12/18/17 00:30 21 Assessment & Plan Problem List: (1) DEMENTIA IN OTH DISEASES CLASSD ELSWHR W BEHAVIORAL DISTURB ICD Codes: F02.81 - DEMENTIA IN OTH DISEASES CLASSD ELSWHR W BEHAVIORAL DISTURB (2) ALZHEIMER'S DISEASE WITH LATE ONSET ICD Codes: G30.1 - ALZHEIMER'S DISEASE WITH LATE ONSET Assessment & Plan Patient continues to have episodes of irritability and agitation when not being allowed to leave the unit. Patient continues to have baseline confusion secondary to dementia poor insight due to the same. We will titrate quetiapine to 25 mg a.m./12.5 mg at 1600 hrs./25 mg at bedtime for mood stabilization. Continue monitor mood and behavior. Continue fall precautions, continue to monitor for orthostatic hypotension. Discharge planning in progress. Justification for Cont. Inpt. At risk for further decompensation if at lower level of care Request HC Surrog/Guard Advoc?: Yes Ananda Weiner MD Dec 19, 2017 13:33
[2017-12-19] MEDS ORDERED: PILL SPLITTER OTHER PRN (14:00)
[2017-12-19] MEDS ORDERED: QUEtiapine FUMARATE 25 MG TAB PO SCH (16:00)
[2017-12-19 18:20] VITALS: BP 162/74; PULSE 63; RESP 16; TEMP 97.5; O2SAT 96
[2017-12-19] MEDS: PRAZOSIN HCL 2 MG CAP PO SCH (20:46)
[2017-12-19] MEDS: PRAVASTATIN SOD 40 MG TAB PO SCH (20:46)
[2017-12-19] MEDS: REMOVE OLD NICOTINE PATCH T-DERMAL SCH (20:47)
[2017-12-20 06:21] VITALS: BP 148/70; PULSE 67; RESP 17; TEMP 97.4; O2SAT 93
[2017-12-20] MEDS: NICOTINE 21 MG/24 HR PATCH T-DERMAL SCH (09:00)
[2017-12-20] MEDS: FAMOTIDINE 20 MG TAB PO SCH (09:30)
[2017-12-20] MEDS: GABAPENTIN 300 MG CAP PO SCH ×2 (09:30→20:56)
[2017-12-20] MEDS: QUEtiapine FUMARATE 25 MG TAB PO SCH ×3 (09:30→20:56)
[2017-12-20] MEDS: GALANTAMINE HYDROBROMIDE 4 MG TAB PO SCH ×2 (09:30→20:56)
[2017-12-20] MEDS: CITALOPRAM HYDROBROMIDE 20 MG TAB PO SCH (09:30)
--- NOTE | 2017-12-20 10:17 | HHI.PYPN ---
Subjective Remarks Patient seen for follow, chart reviewed. Discussion nursing staff reported the patient has not had any aggressive behavior since yesterday, she also had daughter visited yesterday as well. Patient continues to have poor recall, alert and oriented only to person and place, now more redirectable and no behavioral issues this morning. Patient was found lying hospital bed noted B, cooperative. Patient states that he is feeling "okay" denies any physical complaints at this time. Continues to be somewhat preservative discharge but not as irritable and perseverative on it as before. Patient, patient now aware that he is awaiting to be discharged and not focused on this or demanding. Review of Systems Except as stated in HPI: all other systems reviewed are Neg Mental Status Examination Appearance: Appropriate Consciousness: Alert Orientation: Person Motor Activity: Normal gait Speech: Unremarkable Language: Adequate Fund of Knowledge: Adequate Attention and Concentration: Easily Distracted Memory: Impaired Mood: Appropriate, Irritable Affect: Irritable Thought Process & Associations: Goal directed Thought Content: Preoccupations (With discharge), Other Hallucination Type: None Delusion Type: None Suicidal Ideation: No Suicidal Plan: No Suicidal Intention: No Homicidal Ideation: No Homicidal Plan: No Homicidal Intention: No Insight: Poor Judgment: Poor Results Vitals/IOs Vital Signs Date Time Temp Pulse Resp B/P (MAP) Pulse Ox O2 Delivery O2 Flow Rate FiO2 12/20/17 06:21 97.4 67 17 148/70 (96) 93 12/18/17 00:30 21 Intake and Output 12/20/17 12/20/17 12/21/17 08:00 16:00 00:00 Intake Total 720 ml Output Total 1 ml Balance 719 ml Assessment & Plan Problem List: (1) DEMENTIA IN OTH DISEASES CLASSD ELSWHR W BEHAVIORAL DISTURB ICD Codes: F02.81 - DEMENTIA IN OTH DISEASES CLASSD ELSWHR W BEHAVIORAL DISTURB (2) ALZHEIMER'S DISEASE WITH LATE ONSET ICD Codes: G30.1 - ALZHEIMER'S DISEASE WITH LATE ONSET Assessment & Plan Patient this time noted to have improved behavioral control, no periods of agitation since yesterday, easily redirectable now, noted, cooperative with staff. Patient to continue on phone restrictions, continue to monitor with behavior. We will continue patient on current treatment regimen. Discharge planning in progress. Justification for Cont. Inpt. At risk for further decompensation if at lower level of care Discharge Planning To be determined. Request HC Surrog/Guard Advoc?: Yes Ananda Weiner MD Dec 20, 2017 10:17
[2017-12-20] MEDS ORDERED: OLANZapine IM 10 MG VIAL IM ONE ×2 (12:45→13:00)
--- NOTE | 2017-12-20 15:51 | PD.TTN ---
Patient Problems 1. Discharge planning 2. Medication compliance 3. Knowledge deficit 4. Lack of coping skills Progress Toward Goals Provider Present: Dr. Asuncion Weiner Provider Input: 12/20/17 still medications to be adjusted to help working towards placement Nurse(s) Input: 12/20/17 received an ETO over weekend Psychiatric Counselors Present: Alena Goins LCSW Psych Therapist Input: 12/20/17 fererrals sent to local facilities and to [facility] ashleymira is actively working on a guardianship and is aware the difficulty with placement, patient remains with no insight, intrusive and in need for ETO Group Spec/RT/OT/COVARRUBIAS Present: PARUL Perea Group Spec/RT/OT/COVARRUBIAS Input: 12/20/17 does not attend groups Alena Goins LCSW Dec 20, 2017 15:51
[2017-12-20] MEDS: LORazepam 2 MG/ML VIAL - age > 65 yrs IM PRN (17:15)
[2017-12-20 18:00] VITALS: BP 183/79; PULSE 65; RESP 20; TEMP 97.6; O2SAT 95
[2017-12-20] MEDS: PRAZOSIN HCL 2 MG CAP PO SCH (20:56)
[2017-12-20] MEDS: PRAVASTATIN SOD 40 MG TAB PO SCH (20:56)
[2017-12-20] MEDS: REMOVE OLD NICOTINE PATCH T-DERMAL SCH (20:59)
[2017-12-21 05:22] VITALS: BP 138/62; PULSE 58; RESP 16; TEMP 97.5; O2SAT 95
[2017-12-21] MEDS: FAMOTIDINE 20 MG TAB PO SCH (08:47)
[2017-12-21] MEDS: CITALOPRAM HYDROBROMIDE 20 MG TAB PO SCH (08:47)
[2017-12-21] MEDS: QUEtiapine FUMARATE 25 MG TAB PO SCH ×3 (08:47→20:03)
[2017-12-21] MEDS: GALANTAMINE HYDROBROMIDE 4 MG TAB PO SCH ×2 (08:47→20:02)
[2017-12-21] MEDS: GABAPENTIN 300 MG CAP PO SCH ×2 (08:47→20:03)
[2017-12-21] MEDS: NICOTINE 21 MG/24 HR PATCH T-DERMAL SCH (08:49)
--- NOTE | 2017-12-21 17:13 | HHI.PYPN ---
Subjective Remarks Patient seen for follow, chart reviewed. Discussion nursing staff reported the patient has not had any behavioral disturbances being moved to a different unit. Patient was found in the room notably, cooperative, continues to be alert and oriented only to person and place (hospital). Patient denies any physical complaints at this time, reports his mood being "okay" poor recollection when he has spoken to his daughter and over plan the patient will be to rehabilitation Center as daughter actually looking for placement near her residence. Review of Systems Except as stated in HPI: all other systems reviewed are Neg Mental Status Examination Appearance: Appropriate Consciousness: Alert Orientation: Person Motor Activity: Normal gait Speech: Unremarkable Language: Adequate Fund of Knowledge: Adequate Attention and Concentration: Easily Distracted Memory: Impaired Mood: Appropriate Affect: Irritable (Less so today) Thought Process & Associations: Goal directed Thought Content: Appropriate, Other Hallucination Type: None Delusion Type: None Suicidal Ideation: No Suicidal Plan: No Suicidal Intention: No Homicidal Ideation: No Homicidal Plan: No Homicidal Intention: No Insight: Poor Judgment: Poor Results Vitals/IOs Vital Signs Date Time Temp Pulse Resp B/P (MAP) Pulse Ox O2 Delivery O2 Flow Rate FiO2 12/21/17 05:22 97.5 58 16 138/62 (87) 95 12/18/17 00:30 21 Intake and Output 12/21/17 12/21/17 12/21/17 07:59 15:59 23:59 Intake Total 400 ml 480 ml Balance 400 ml 480 ml Assessment & Plan Problem List: (1) DEMENTIA IN OTH DISEASES CLASSD ELSWHR W BEHAVIORAL DISTURB ICD Codes: F02.81 - DEMENTIA IN OTH DISEASES CLASSD ELSWHR W BEHAVIORAL DISTURB (2) ALZHEIMER'S DISEASE WITH LATE ONSET ICD Codes: G30.1 - ALZHEIMER'S DISEASE WITH LATE ONSET Assessment & Plan Patient with no behavioral disturbances, noted to be calm and cooperative with staff, compliant with medications. Continue current treatment regimen. Continue to monitor mood and behavior. Discharge planning in progress. Justification for Cont. Inpt. At risk for further decompensation if at lower level of care Discharge Planning To be determined Request HC Surrog/Guard Advoc?: Yes Ananda Weiner MD Dec 21, 2017 17:13
[2017-12-21 18:09] VITALS: BP 171/56; PULSE 65; RESP 18; O2SAT 97
[2017-12-21] MEDS: LORazepam 0.5 MG TAB age > 65 yrs PO PRN (20:02)
[2017-12-21] MEDS: PRAVASTATIN SOD 40 MG TAB PO SCH (20:02)
[2017-12-21] MEDS: PRAZOSIN HCL 2 MG CAP PO SCH (20:02)
[2017-12-21] MEDS: REMOVE OLD NICOTINE PATCH T-DERMAL SCH (20:03)
[2017-12-22 05:08] VITALS: BP 139/76; PULSE 92; RESP 17; TEMP 97.6; O2SAT 94
[2017-12-22] MEDS: QUEtiapine FUMARATE 25 MG TAB PO SCH ×3 (08:59→20:33)
[2017-12-22] MEDS: GABAPENTIN 300 MG CAP PO SCH ×2 (08:59→20:33)
[2017-12-22] MEDS: CITALOPRAM HYDROBROMIDE 20 MG TAB PO SCH (08:59)
[2017-12-22] MEDS: NICOTINE 21 MG/24 HR PATCH T-DERMAL SCH (08:59)
[2017-12-22] MEDS: FAMOTIDINE 20 MG TAB PO SCH (08:59)
[2017-12-22] MEDS: GALANTAMINE HYDROBROMIDE 4 MG TAB PO SCH ×2 (08:59→20:33)
[2017-12-22 18:33] VITALS: BP 126/75; PULSE 69; RESP 18; TEMP 97.5; O2SAT 97
[2017-12-22] MEDS: PRAVASTATIN SOD 40 MG TAB PO SCH (20:33)
[2017-12-22] MEDS: PRAZOSIN HCL 2 MG CAP PO SCH (20:33)
[2017-12-22] MEDS: REMOVE OLD NICOTINE PATCH T-DERMAL SCH (20:34)
[2017-12-23 06:03] VITALS: BP 165/76; PULSE 80; RESP 16; TEMP 97.9; O2SAT 99
[2017-12-23] MEDS: FAMOTIDINE 20 MG TAB PO SCH (08:46)
[2017-12-23] MEDS: GABAPENTIN 300 MG CAP PO SCH ×2 (08:46→20:38)
[2017-12-23] MEDS: QUEtiapine FUMARATE 25 MG TAB PO SCH ×3 (08:46→20:38)
[2017-12-23] MEDS: CITALOPRAM HYDROBROMIDE 20 MG TAB PO SCH (08:46)
[2017-12-23] MEDS: NICOTINE 21 MG/24 HR PATCH T-DERMAL SCH (08:47)
[2017-12-23] MEDS: GALANTAMINE HYDROBROMIDE 4 MG TAB PO SCH ×2 (08:47→20:38)
[2017-12-23] MEDS: LORazepam 0.5 MG TAB age > 65 yrs PO PRN ×2 (11:04→19:38)
[2017-12-23] MEDS: LORazepam 2 MG/ML VIAL - age > 65 yrs IM PRN (11:13)
--- NOTE | 2017-12-23 17:04 | HHI.PYPN ---
Subjective Remarks LATE ENTRY FOR 12/22/17 Patient seen for follow up; chart reviewed. Discussion with nursing staff reported that patient continues to be confused and focused on going home. Patient was found in day room, noted to be calm and cooperative, not recalling who aligner typewriter was but pleasant. He states feeling "good", denies any physical complaints, eating and drinking well, states that he is leaving today and noted to be carrying around his belongings. No aggressive behavior at this time. Review of Systems Except as stated in HPI: all other systems reviewed are Neg Mental Status Examination Appearance: Appropriate Consciousness: Alert Orientation: Person Motor Activity: Normal gait Speech: Unremarkable Language: Adequate Fund of Knowledge: Adequate Attention and Concentration: Easily Distracted Memory: Impaired Mood: Appropriate Affect: Irritable (Less so today) Thought Process & Associations: Goal directed Thought Content: Appropriate, Other Hallucination Type: None Delusion Type: None Suicidal Ideation: No Suicidal Plan: No Suicidal Intention: No Homicidal Ideation: No Homicidal Plan: No Homicidal Intention: No Insight: Poor Judgment: Poor Results Vitals/IOs Vital Signs Date Time Temp Pulse Resp B/P (MAP) Pulse Ox O2 Delivery O2 Flow Rate FiO2 12/23/17 06:03 97.9 80 16 165/76 (105) 99 Intake and Output 12/23/17 12/23/17 12/24/17 08:00 16:00 00:00 Intake Total 0 ml 240 ml Balance 0 ml 240 ml Assessment & Plan Problem List: (1) DEMENTIA IN OTH DISEASES CLASSD ELSWHR W BEHAVIORAL DISTURB ICD Codes: F02.81 - DEMENTIA IN OTH DISEASES CLASSD ELSWHR W BEHAVIORAL DISTURB (2) ALZHEIMER'S DISEASE WITH LATE ONSET ICD Codes: G30.1 - ALZHEIMER'S DISEASE WITH LATE ONSET Assessment & Plan Patient continues with baseline confusion secondary to neurocognitive deficits, no episodes of agitation, compliant with medications. Continues to be perseverative on discharge but redirectible. Continue to monitor mood and behavior. Discharge planning in progress. Justification for Cont. Inpt. At risk for further decompensation at lower level of care. Request HC Surrog/Guard Advoc?: Yes Ananda Weiner MD Dec 23, 2017 17:04
--- NOTE | 2017-12-23 17:04 | HHI.PYPN ---
Subjective Remarks Patient seen for follow up; chart reviewed. Discussion with nursing staff reported that the patient had been attempting to make phone calls. Patient was found carrying his belongings and stating that he is leaving today and noted to be in good spirits due to this belief. He denies any physical complaints, states mood as being "good", continues to be alert and oriented only to person. Patient later was given Ativan IM due to becoming upset that he did not have phone privileges but subsequently became calm and cooperative. Review of Systems Except as stated in HPI: all other systems reviewed are Neg Mental Status Examination Appearance: Appropriate Consciousness: Alert Orientation: Person Motor Activity: Normal gait Speech: Unremarkable Language: Adequate Fund of Knowledge: Adequate Attention and Concentration: Easily Distracted Memory: Impaired Mood: Appropriate Affect: Irritable (Less so today) Thought Process & Associations: Goal directed Thought Content: Appropriate, Other Hallucination Type: None Delusion Type: None Suicidal Ideation: No Suicidal Plan: No Suicidal Intention: No Homicidal Ideation: No Homicidal Plan: No Homicidal Intention: No Insight: Poor Judgment: Poor Results Vitals/IOs Vital Signs Date Time Temp Pulse Resp B/P (MAP) Pulse Ox O2 Delivery O2 Flow Rate FiO2 12/23/17 06:03 97.9 80 16 165/76 (105) 99 Intake and Output 12/23/17 12/23/17 12/24/17 08:00 16:00 00:00 Intake Total 0 ml 240 ml Balance 0 ml 240 ml Assessment & Plan Problem List: (1) DEMENTIA IN OTH DISEASES CLASSD ELSWHR W BEHAVIORAL DISTURB ICD Codes: F02.81 - DEMENTIA IN OTH DISEASES CLASSD ELSWHR W BEHAVIORAL DISTURB (2) ALZHEIMER'S DISEASE WITH LATE ONSET ICD Codes: G30.1 - ALZHEIMER'S DISEASE WITH LATE ONSET Assessment & Plan Patient generally calm and cooperative with staff with no behavioral dyscontrol recently and redirectible. Continue current treatment, continue to monitor mood and behavior. Spiral Weaver from [facility] planned for visit with patient. Discharge planning in progress. Justification for Cont. Inpt. At risk for further decompensation if at lower level of care. Request HC Surrog/Guard Advoc?: Yes Ananda Weiner MD Dec 23, 2017 17:04
[2017-12-23 18:02] VITALS: BP 155/74; PULSE 65; RESP 17; TEMP 97.2; O2SAT 97
[2017-12-23] MEDS: PRAVASTATIN SOD 40 MG TAB PO SCH (20:37)
[2017-12-23] MEDS: PRAZOSIN HCL 2 MG CAP PO SCH (20:38)
[2017-12-23] MEDS: diphenhydrAMINE HCL 50 MG CAP - HS PRN PO (20:38)
[2017-12-23] MEDS: REMOVE OLD NICOTINE PATCH T-DERMAL SCH (20:50)
[2017-12-24 05:29] VITALS: BP 140/73; PULSE 59; RESP 15; TEMP 98; O2SAT 93
[2017-12-24] MEDS: QUEtiapine FUMARATE 25 MG TAB PO SCH ×3 (08:17→20:50)
[2017-12-24] MEDS: GABAPENTIN 300 MG CAP PO SCH ×2 (08:17→20:51)
[2017-12-24] MEDS: CITALOPRAM HYDROBROMIDE 20 MG TAB PO SCH (08:17)
[2017-12-24] MEDS: FAMOTIDINE 20 MG TAB PO SCH (08:17)
[2017-12-24] MEDS: GALANTAMINE HYDROBROMIDE 4 MG TAB PO SCH ×2 (08:18→20:50)
[2017-12-24] MEDS: NICOTINE 21 MG/24 HR PATCH T-DERMAL SCH (08:20)
--- NOTE | 2017-12-24 11:59 | HHI.PYPN ---
Subjective Remarks Patient seen for follow, chart reviewed. Discussion nursing staff reported the patient with no behavioral issues less evening. Patient was found sitting in the room notably, cooperative. Patient did not recognize functional tester typewriters but was pleasant during interview. Patient denies any physical complaints at this time continue to be alert and oriented only to person. Patient somewhat focused on trying to call his girlfriend but was not noted to be irritable or aggressive. Review of Systems Except as stated in HPI: all other systems reviewed are Neg Mental Status Examination Appearance: Appropriate Consciousness: Alert Orientation: Person Motor Activity: Normal gait Speech: Unremarkable Language: Adequate Fund of Knowledge: Adequate Attention and Concentration: Easily Distracted Memory: Impaired Mood: Appropriate Affect: Appropriate, Irritable (Less so today) Thought Process & Associations: Goal directed Thought Content: Appropriate, Other Hallucination Type: None Delusion Type: None Suicidal Ideation: No Suicidal Plan: No Suicidal Intention: No Homicidal Ideation: No Homicidal Plan: No Homicidal Intention: No Insight: Poor Judgment: Poor Results Vitals/IOs Vital Signs Date Time Temp Pulse Resp B/P (MAP) Pulse Ox O2 Delivery O2 Flow Rate FiO2 12/24/17 05:29 98.0 59 15 140/73 (95) 93 Intake and Output 12/24/17 12/24/17 12/25/17 08:00 16:00 00:00 Intake Total 0 ml Balance 0 ml Assessment & Plan Problem List: (1) DEMENTIA IN OTH DISEASES CLASSD ELSWHR W BEHAVIORAL DISTURB ICD Codes: F02.81 - DEMENTIA IN OTH DISEASES CLASSD ELSWHR W BEHAVIORAL DISTURB (2) ALZHEIMER'S DISEASE WITH LATE ONSET ICD Codes: G30.1 - ALZHEIMER'S DISEASE WITH LATE ONSET Assessment & Plan Patient this time with no behavioral services recently, needing redirection when focused on calling girlfriend or attempting to exit the unit but less so recently. Continue current treatment continue to monitor with behavior. Discharge planning in progress. Justification for Cont. Inpt. At risk for decompensation at lower level of care. Discharge Planning To be determined. Request HC Surrog/Guard Advoc?: Yes Ananda Weiner MD Dec 24, 2017 11:59
[2017-12-24] MEDS: LORazepam 0.5 MG TAB age > 65 yrs PO PRN (13:35)
[2017-12-24 17:27] VITALS: BP 104/57; PULSE 76; RESP 17; TEMP 97.4; O2SAT 94
[2017-12-24] MEDS: PRAVASTATIN SOD 40 MG TAB PO SCH (20:51)
[2017-12-24] MEDS: REMOVE OLD NICOTINE PATCH T-DERMAL SCH (21:00)
[2017-12-24] MEDS: PRAZOSIN HCL 2 MG CAP PO SCH (21:00)
[2017-12-24] MEDS: diphenhydrAMINE HCL 50 MG CAP - HS PRN PO (21:35)
[2017-12-24] MEDS: hydrOXYzine HCL 50 MG TAB PO PRN (21:35)
[2017-12-25 06:30] VITALS: BP 154/84; PULSE 59; RESP 15; TEMP 98.6; O2SAT 94
[2017-12-25] MEDS: NICOTINE 21 MG/24 HR PATCH T-DERMAL SCH (07:25)
[2017-12-25] MEDS: GABAPENTIN 300 MG CAP PO SCH ×2 (07:47→20:00)
[2017-12-25] MEDS: CITALOPRAM HYDROBROMIDE 20 MG TAB PO SCH (07:47)
[2017-12-25] MEDS: GALANTAMINE HYDROBROMIDE 4 MG TAB PO SCH ×2 (07:47→19:59)
[2017-12-25] MEDS: FAMOTIDINE 20 MG TAB PO SCH (07:47)
[2017-12-25] MEDS: QUEtiapine FUMARATE 25 MG TAB PO SCH ×3 (07:47→20:00)
--- NOTE | 2017-12-25 15:09 | HHI.PYPN ---
Subjective Remarks Patient was seen and case discussed with nursing. Patient is alert and oriented 2. Pleasantly confused. Does not believe he has been seen by since she has been here. Compliant with his medications. Visible in the unit. Mental Status Examination Appearance: Appropriate Consciousness: Alert Orientation: Person Motor Activity: Normal gait Speech: Unremarkable Language: Adequate Fund of Knowledge: Adequate Attention and Concentration: Easily Distracted Memory: Impaired Mood: Appropriate Affect: Appropriate, Irritable (Less so today) Thought Process & Associations: Goal directed Thought Content: Appropriate, Other Hallucination Type: None Delusion Type: None Suicidal Ideation: No Suicidal Plan: No Suicidal Intention: No Homicidal Ideation: No Homicidal Plan: No Homicidal Intention: No Insight: Poor Judgment: Poor Results Vitals/IOs Vital Signs Date Time Temp Pulse Resp B/P (MAP) Pulse Ox O2 Delivery O2 Flow Rate FiO2 12/25/17 06:30 98.6 59 15 154/84 (107) 94 Intake and Output 12/25/17 12/25/17 12/26/17 08:00 16:00 00:00 Intake Total 1260 ml Balance 1260 ml Assessment & Plan Problem List: (1) DEMENTIA IN OTH DISEASES CLASSD ELSWHR W BEHAVIORAL DISTURB ICD Codes: F02.81 - DEMENTIA IN OTH DISEASES CLASSD ELSWHR W BEHAVIORAL DISTURB (2) ALZHEIMER'S DISEASE WITH LATE ONSET ICD Codes: G30.1 - ALZHEIMER'S DISEASE WITH LATE ONSET Assessment & Plan Continue current treatment plan Justification for Cont. Inpt. Patient would decompensate in a less restrictive setting Request HC Surrog/Guard Advoc?: Yes Cruzito Whalen DO Dec 25, 2017 15:09
[2017-12-25] MEDS: hydrOXYzine HCL 50 MG TAB PO PRN (15:48)
[2017-12-25] MEDS: LORazepam 2 MG/ML VIAL - age > 65 yrs IM PRN (19:15)
[2017-12-25] MEDS: PRAZOSIN HCL 2 MG CAP PO SCH (19:59)
[2017-12-25] MEDS: REMOVE OLD NICOTINE PATCH T-DERMAL SCH (20:00)
[2017-12-25] MEDS: PRAVASTATIN SOD 40 MG TAB PO SCH (20:00)
[2017-12-26 05:51] VITALS: BP 135/62; PULSE 57; RESP 16; TEMP 97.4; O2SAT 95
[2017-12-26] MEDS: QUEtiapine FUMARATE 25 MG TAB PO SCH ×3 (08:35→20:45)
[2017-12-26] MEDS: FAMOTIDINE 20 MG TAB PO SCH (08:36)
[2017-12-26] MEDS: GABAPENTIN 300 MG CAP PO SCH ×2 (08:36→20:45)
[2017-12-26] MEDS: GALANTAMINE HYDROBROMIDE 4 MG TAB PO SCH ×2 (08:37→20:45)
[2017-12-26] MEDS: hydrOXYzine HCL 50 MG TAB PO PRN (08:38)
[2017-12-26] MEDS: NICOTINE 21 MG/24 HR PATCH T-DERMAL SCH (08:40)
[2017-12-26] MEDS: CITALOPRAM HYDROBROMIDE 20 MG TAB PO SCH (08:40)
[2017-12-26] MEDS: LORazepam 0.5 MG TAB age > 65 yrs PO PRN (13:41)
[2017-12-26] MEDS: diphenhydrAMINE HCL 50 MG CAP - HS PRN PO ×2 (13:41→20:46)
--- NOTE | 2017-12-26 15:24 | HHI.PYPN ---
Subjective Remarks Patient was seen and case discussed with nursing. Patient is alert and oriented 1. He is confused and wandering about the unit. Has trouble taking care of himself and following simple commands. Per nursing, he can get agitated and loud. Refused the interview after the first question and walks away Mental Status Examination Appearance: Appropriate Consciousness: Alert Orientation: Person Motor Activity: Normal gait Speech: Unremarkable Language: Adequate Fund of Knowledge: Adequate Attention and Concentration: Easily Distracted Memory: Impaired Mood: Manic Affect: Irritable (Less so today), Labile Thought Process & Associations: Loose associations Thought Content: Bizarre thinking Hallucination Type: None Delusion Type: None Suicidal Ideation: No Suicidal Plan: No Suicidal Intention: No Homicidal Ideation: No Homicidal Plan: No Homicidal Intention: No Insight: Poor Judgment: Poor Results Vitals/IOs Vital Signs Date Time Temp Pulse Resp B/P (MAP) Pulse Ox O2 Delivery O2 Flow Rate FiO2 12/26/17 05:51 97.4 57 16 135/62 (86) 95 Assessment & Plan Problem List: (1) DEMENTIA IN OTH DISEASES CLASSD ELSWHR W BEHAVIORAL DISTURB ICD Codes: F02.81 - DEMENTIA IN OTH DISEASES CLASSD ELSWHR W BEHAVIORAL DISTURB (2) ALZHEIMER'S DISEASE WITH LATE ONSET ICD Codes: G30.1 - ALZHEIMER'S DISEASE WITH LATE ONSET Assessment & Plan Continue current treatment plan Justification for Cont. Inpt. Patient would decompensate in a less restrictive setting Request HC Surrog/Guard Advoc?: Yes Cruzito Whalen DO Dec 26, 2017 15:24
[2017-12-26 17:51] VITALS: BP 155/66; PULSE 69; RESP 18; TEMP 97.8; O2SAT 96
[2017-12-26] MEDS: LORazepam 2 MG/ML VIAL - age > 65 yrs IM PRN (18:09)
[2017-12-26] MEDS: PRAZOSIN HCL 2 MG CAP PO SCH (20:45)
[2017-12-26] MEDS: PRAVASTATIN SOD 40 MG TAB PO SCH (20:46)
[2017-12-26] MEDS: REMOVE OLD NICOTINE PATCH T-DERMAL SCH (20:49)
[2017-12-27 06:22] VITALS: BP 128/64; PULSE 69; RESP 12; O2SAT 94
[2017-12-27] MEDS: GABAPENTIN 300 MG CAP PO SCH ×2 (08:10→21:12)
[2017-12-27] MEDS: LORazepam 0.5 MG TAB age > 65 yrs PO PRN ×2 (08:10→21:11)
[2017-12-27] MEDS: GALANTAMINE HYDROBROMIDE 4 MG TAB PO SCH ×2 (08:10→21:11)
[2017-12-27] MEDS: CITALOPRAM HYDROBROMIDE 20 MG TAB PO SCH (08:10)
[2017-12-27] MEDS: hydrOXYzine HCL 50 MG TAB PO PRN (08:10)
[2017-12-27] MEDS: QUEtiapine FUMARATE 25 MG TAB PO SCH ×3 (08:10→21:11)
[2017-12-27] MEDS: FAMOTIDINE 20 MG TAB PO SCH (08:10)
[2017-12-27] MEDS: NICOTINE 21 MG/24 HR PATCH T-DERMAL SCH (08:12)
[2017-12-27] MEDS ORDERED: OLANZapine IM 10 MG VIAL IM ONE (15:23)
--- NOTE | 2017-12-27 17:28 | HHI.PYPN ---
Subjective Remarks Patient seen for follow, chart reviewed. Discussion nursing staff reported the patient less evening to be taken to higher acuity unit due to agitation and wanted to exit the unit but was returned back to 2500 units as patient noted to be less agitated, patient compliant with medications. Patient was found social on the unit in the day room with other patients, noted to be, cooperative for interview. Patient continues to be alert and oriented only to person. Patient was not perseverative on discharge, denying any physical complaints at this time. Nursing staff later reported the patient later in the afternoon had become agitated again attempted to be perseverative on exiting the unit has required ETO to address agitation. Review of Systems Except as stated in HPI: all other systems reviewed are Neg Mental Status Examination Appearance: Appropriate Consciousness: Alert Orientation: Person Motor Activity: Normal gait Speech: Unremarkable Language: Adequate Fund of Knowledge: Adequate Attention and Concentration: Easily Distracted Memory: Impaired Mood: Appropriate Affect: Appropriate Thought Process & Associations: Intact, Loose associations Thought Content: Appropriate Hallucination Type: None Delusion Type: None Suicidal Ideation: No Suicidal Plan: No Suicidal Intention: No Homicidal Ideation: No Homicidal Plan: No Homicidal Intention: No Insight: Poor Judgment: Poor Results Vitals/IOs Vital Signs Date Time Temp Pulse Resp B/P (MAP) Pulse Ox O2 Delivery O2 Flow Rate FiO2 12/27/17 06:22 69 12 128/64 (85) 94 12/26/17 17:51 97.8 Intake and Output 12/27/17 12/27/17 12/28/17 08:00 16:00 00:00 Intake Total 240 ml 600 ml 120 ml Balance 240 ml 600 ml 120 ml Assessment & Plan Problem List: (1) DEMENTIA IN OTH DISEASES CLASSD ELSWHR W BEHAVIORAL DISTURB ICD Codes: F02.81 - DEMENTIA IN OTH DISEASES CLASSD ELSWHR W BEHAVIORAL DISTURB (2) ALZHEIMER'S DISEASE WITH LATE ONSET ICD Codes: G30.1 - ALZHEIMER'S DISEASE WITH LATE ONSET Assessment & Plan Patient this time continues to be in good behavioral control when not focused on leaving the unit but becomes agitated when attempting to try to leave and requiring ETO earlier today for the same. We will increase quetiapine to 25 mg a.m./25 mg p.m./25 mg at bedtime for mood stabilization. We will have slow titration as patient had previous fall during initial part of admission when titrating quetiapine. Continue monitor for orthostatic hypotension, continue to monitor for fall risk. Continue monitor mood and behavior. Discharge planning in progress. Justification for Cont. Inpt. At risk for further decompensation if at lower level of care Request HC Surrog/Guard Advoc?: Yes Ananda Weiner MD Dec 27, 2017 17:27
[2017-12-27 18:15] VITALS: BP 138/76; PULSE 68; RESP 15; TEMP 98.6; O2SAT 94
[2017-12-27] MEDS: REMOVE OLD NICOTINE PATCH T-DERMAL SCH (21:00)
[2017-12-27] MEDS: PRAZOSIN HCL 2 MG CAP PO SCH (21:11)
[2017-12-27] MEDS: PRAVASTATIN SOD 40 MG TAB PO SCH (21:12)
[2017-12-27 22:30] VITALS: O2SAT 94; O2SAT 96
--- NOTE | 2017-12-27 23:04 | RADRPT ---
EXAM DATE/TIME: 12/27/2017 22:50 [facility] COMPARISON: No previous studies available for comparison. INDICATIONS : Short of breath. MEDICAL HISTORY : Dementia. SURGICAL HISTORY : None. ENCOUNTER: Initial ACUITY: 1 day PAIN SCORE: Non-responsive. LOCATION: Bilateral chest FINDINGS: Bibasilar infiltrates noted, right worse on left. No pleural effusion demonstrated. No pneumothorax. Heart size within normal limits. Thoracic aorta is tortuous. CONCLUSION: Right greater than left basilar consolidation. Rolf Bassett MD on December 27, 2017 at 23:02 Board Certified Radiologist. This report was verified electronically.
[2017-12-27 23:36] LABS: AUTOMATED NEUTROPHIL # 10.7 TH/MM3 (1.8-7.7); BASOPHIL % 0.3 % (0.0-2.0); EOSINOPHIL # 0.1 TH/MM3 (0-0.4); EOSINOPHIL % 0.9 % (0.0-4.0); HEMATOCRIT 36.1 % (39.0-51.0); HEMOGLOBIN 12.2 GM/DL (13.0-17.0); LYMPH % 4.4 % (9.0-44.0); LYMPHOCYTE # 0.5 TH/MM3 (1.0-4.8); MEAN CELL VOLUME 91.1 FL (80.0-100.0); MEAN CORPUSCULAR HEMOGLOBIN 30.9 PG (27.0-34.0); MEAN CORPUSCULAR HGB CONC 33.9 % (32.0-36.0); MEAN PLATELET VOLUME 6.7 FL (7.0-11.0); MONO % 6.2 % (0.0-8.0); MONOCYTE # 0.7 TH/MM3 (0-0.9); NEUT % 88.2 % (16.0-70.0); PLATELET COUNT 300 TH/MM3 (150-450); RED BLOOD COUNT 3.97 MIL/MM3 (4.50-5.90); RED CELL DISTRIBUTION WIDTH 13.2 % (11.6-17.2); WHITE BLOOD COUNT 12.1 TH/MM3 (4.0-11.0)
--- NOTE | 2017-12-27 23:47 | HHI.PR ---
Addendum to Inpatient Note Addendum Reason: Additional Documentation Additional Information Halicat Note: S: Resident team paged at approximately 2049 for a Halicat. At the patient's room the nursing staff reports that the patient had recently had increased respiratory effort. He has decreased mental status at baseline, is typically A& O 1. The staff reports that they placed him on a nonrebreather mask following an O2 saturation of the high 80s, and it increased to 95. They state that today his Seroquel was increased that may be contributing to his current state. They also report that the patient had choked on his food earlier in the day and are concerned about aspiration. The report that at this point he appears to be breathing well and looks to be around baseline. Upon interview patient is alert to self, as is his normal baseline. Does not answer questions, easily distractible. O: BP: 170/102 P: 74 SPO2: 95% on 5 L nonrebreather mask, removed mask for 3 minutes, 95% on room air RR: 18 GENERAL: Laying in bed, responds to commands, distractible SKIN: Warm and dry. HEAD: Normocephalic. EYES: No scleral icterus. No injection or drainage. NECK: Supple, trachea midline. No JVD or lymphadenopathy. CARDIOVASCULAR: Regular rate and rhythm without murmurs, gallops, or rubs. RESPIRATORY: Breath sounds equal bilaterally. No accessory muscle use. GASTROINTESTINAL: Abdomen soft, non-tender, nondistended. MUSCULOSKELETAL: No cyanosis, or edema. BACK: Nontender without obvious deformity. No CVA tenderness. Last 24 hours Impressions Chest X-Ray 12/27/17 0000 Signed Impressions: Service Date/Time: Wednesday, December 27, 2017 22:50 - CONCLUSION: Right greater than left basilar consolidation. Rolf Bassett MD ABG Test 12/27/17 23:00 Arterial Blood Carboxyhemoglobin 1.1 % Arterial Blood Methemoglobin 1.0 % Arterial Blood Oxygen Content 15.5 Vol % Arterial Blood Partial Pressure CO2 39 mmHg Arterial Blood Partial Pressure O2 109 mmHg Arterial Blood pH 7.47 H Blood Gas Base Excess 4.5 mmol/L H Blood Gas HCO3 28 mmol/L H Blood Gas Hemoglobin 11.3 G/DL L Blood Gas Inspired Oxygen 100 % Blood Gas Liter Flow 15 L/M Blood Gas Oxygen Saturation 97 % Oxygen Delivery Device Non-Rebreathing Mask A/P: 87-year-old male with history of Alzheimer's, dementia with recent increase in respiratory effort. O2 saturation 95% on and off O2. ABG as above. Afebrile. Recently with increase in dose of Seroquel. CXR with right greater than left basilar consolidation. Patient's primary team Dr. Churchill aware of current condition. Due to the possible aspiration earlier in the day and current CXR reading aspiration pneumonia must be considered. -Transfer to [facility] -follow-up CBC, CMP -Possible aspiration pneumonia:Zosyn 4.5 g every 6hrs -Supplemental O2 as needed Derrick Laurent MD R1 Dec 27, 2017 23:47
[2017-12-27 23:57] VITALS: BP 153/93; O2SAT 95
[2017-12-28 00:02] LABS: ALBUMIN 3.2 GM/DL (3.4-5.0); AST (GOT) 24 U/L (15-37); BLOOD UREA NITROGEN 27 MG/DL (7-18); CALCIUM 8.8 MG/DL (8.5-10.1); CHLORIDE 108 MEQ/L (98-107); CREATININE 1.55 MG/DL (0.60-1.30); GLOMERULAR FILTRATION RATE 43 ML/MIN (>89); GLUCOSE,RANDOM 138 MG/DL (74-106); SODIUM (NA) 143 MEQ/L (136-145)
[2017-12-28 00:03] LABS: ALT (GPT) 37 U/L (12-78)
[2017-12-28 00:05] LABS: ALKALINE PHOSPHATASE 91 U/L (45-117); TOTAL BILIRUBIN ADULT 0.3 MG/DL (0.2-1.0); TOTAL PROTEIN 6.9 GM/DL (6.4-8.2)
[2017-12-28 00:15] VITALS: O2SAT 95
[2017-12-28] MEDS: PIPERACIL-TAZO 4.5 GM PREMIX 100 ML IV SCH ×3 (01:04→12:15)
[2017-12-28 01:55] VITALS: O2SAT 96
[2017-12-28 02:12] VITALS: O2SAT 96
[2017-12-28 06:00] VITALS: BP 121/58; PULSE 72; RESP 16; TEMP 98; O2SAT 94
[2017-12-28] MEDS: GALANTAMINE HYDROBROMIDE 4 MG TAB PO SCH ×2 (08:28→20:23)
[2017-12-28] MEDS: GABAPENTIN 300 MG CAP PO SCH ×2 (08:28→20:18)
[2017-12-28] MEDS: NICOTINE 21 MG/24 HR PATCH T-DERMAL SCH (08:28)
[2017-12-28] MEDS: QUEtiapine FUMARATE 25 MG TAB PO SCH ×3 (08:28→20:18)
[2017-12-28] MEDS: FAMOTIDINE 20 MG TAB PO SCH (08:28)
[2017-12-28] MEDS: CITALOPRAM HYDROBROMIDE 20 MG TAB PO SCH (08:28)
--- NOTE | 2017-12-28 08:59 | HHI.PR ---
Subjective Remarks pt had Halicat last night for possible aspiration. when I arrive this AM he is ambulating around in the room. no distress and on room air. cooperative. Objective Vitals no labored breathing disoriented but cooperative heart reg lung cta abd s/nt ext no edema standing next to bed when I arrive. Vital Signs Date Time Temp Pulse Resp B/P (MAP) Pulse Ox O2 Delivery O2 Flow Rate FiO2 12/28/17 06:00 98.0 72 16 121/58 (79) 94 12/28/17 02:12 96 12/28/17 01:55 96 Nasal Cannula 3.00 12/28/17 00:15 95 Nasal Cannula 3.00 12/27/17 23:57 153/93 (113) 95 12/27/17 22:30 94 15.00 100 12/27/17 22:30 96 Non-Rebreather 15.00 100 12/27/17 18:15 98.6 68 15 138/76 (96) 94 Result Diagram: 12/27/17232712/27/17 2328 A/P Problem List: (1) DEMENTIA IN OTH DISEASES CLASSD ELSWHR W BEHAVIORAL DISTURB ICD Codes: F02.81 - DEMENTIA IN OTH DISEASES CLASSD ELSWHR W BEHAVIORAL DISTURB Status: Acute Plan: admitted to psych unit for dementia with agitation. Marilee called last night 12/27. some concern for hypoxia. there was concern for aspiration after choking on food and and an adjustment of seroquel. He was started on zosyn. This morning pt appears in no distress, on room air and ambulatin in the room. will probably convert to po abx in AM. will follow. (2) BPH (benign prostatic hyperplasia) ICD Codes: N40.0 - Benign prostatic hyperplasia without lower urinary tract symptoms Status: Chronic Plan: continue patient's home Prazosin (Prazosin HCl) 2 Mg Cap 2 Mg PO HS (3) Hyperlipidemia ICD Codes: E78.5 - Hyperlipidemia, unspecified Status: Chronic Plan: Continue patient's home lovastatin (4) Arthritis ICD Codes: M19.90 - Unspecified osteoarthritis, unspecified site Status: Chronic Plan: acetaminophen as needed for pain Marcos Vásquez MD Dec 28, 2017 08:59
[2017-12-28 09:43] VITALS: O2SAT 94
--- NOTE | 2017-12-28 11:26 | HHI.PYPN ---
Subjective Remarks Patient is here for follow, chart reviewed. Discussion nursing staff reported the patient had chest x-ray which showed right basilar consolidation which suspicion of aspiration pneumonia was considered patient placed on antibiotic treatment at this time. Patient was found lying hospital bed noted B, cooperative. Patient continues to be alert and oriented only to person, no behavioral disturbances recently. Patient reports mood being "good" denies feeling depressed, denies any manic or psychotic symptoms at this time. Review of Systems Except as stated in HPI: all other systems reviewed are Neg Mental Status Examination Appearance: Appropriate Consciousness: Alert Orientation: Person Motor Activity: Normal gait Speech: Unremarkable Language: Adequate Fund of Knowledge: Adequate Attention and Concentration: Easily Distracted Memory: Impaired Mood: Appropriate Affect: Appropriate Thought Process & Associations: Intact, Loose associations Thought Content: Appropriate Hallucination Type: None Delusion Type: None Suicidal Ideation: No Suicidal Plan: No Suicidal Intention: No Homicidal Ideation: No Homicidal Plan: No Homicidal Intention: No Insight: Poor Judgment: Poor Results Labs Labs reviewed Test 12/27/17 23:00 12/27/17 23:28 Blood Gas Puncture Site RT RADIAL Blood Gas Patient Temperature 98.6 Blood Gas HCO3 28 mmol/L Blood Gas Base Excess 4.5 mmol/L Blood Gas Oxygen Saturation 97 % Arterial Blood pH 7.47 Arterial Blood Partial Pressure CO2 39 mmHg Arterial Blood Partial Pressure O2 109 mmHg Arterial Blood Oxygen Content 15.5 Vol % Arterial Blood Carboxyhemoglobin 1.1 % Arterial Blood Methemoglobin 1.0 % Blood Gas Hemoglobin 11.3 G/DL Oxygen Delivery Device Non-Rebreathing Mask Blood Gas Liter Flow 15 L/M Blood Gas Inspired Oxygen 100 % White Blood Count 12.1 TH/MM3 Red Blood Count 3.97 MIL/MM3 Hemoglobin 12.2 GM/DL Hematocrit 36.1 % Mean Corpuscular Volume 91.1 FL Mean Corpuscular Hemoglobin 30.9 PG Mean Corpuscular Hemoglobin Concent 33.9 % Red Cell Distribution Width 13.2 % Platelet Count 300 TH/MM3 Mean Platelet Volume 6.7 FL Neutrophils (%) (Auto) 88.2 % Lymphocytes (%) (Auto) 4.4 % Monocytes (%) (Auto) 6.2 % Eosinophils (%) (Auto) 0.9 % Basophils (%) (Auto) 0.3 % Neutrophils # (Auto) 10.7 TH/MM3 Lymphocytes # (Auto) 0.5 TH/MM3 Monocytes # (Auto) 0.7 TH/MM3 Eosinophils # (Auto) 0.1 TH/MM3 Basophils # (Auto) 0.0 TH/MM3 CBC Comment DIFF FINAL Differential Comment Blood Urea Nitrogen 27 MG/DL Creatinine 1.55 MG/DL Random Glucose 138 MG/DL Total Protein 6.9 GM/DL Albumin 3.2 GM/DL Calcium Level 8.8 MG/DL Alkaline Phosphatase 91 U/L Aspartate Amino Transf (AST/SGOT) 24 U/L Alanine Aminotransferase (ALT/SGPT) 37 U/L Total Bilirubin 0.3 MG/DL Sodium Level 143 MEQ/L Potassium Level 4.4 MEQ/L Chloride Level 108 MEQ/L Carbon Dioxide Level 30.0 MEQ/L Anion Gap 5 MEQ/L Estimat Glomerular Filtration Rate 43 ML/MIN Vitals/IOs Vital Signs Date Time Temp Pulse Resp B/P (MAP) Pulse Ox O2 Delivery O2 Flow Rate FiO2 12/28/17 09:43 94 21 12/28/17 06:00 98.0 72 16 121/58 (79) 12/28/17 01:55 Nasal Cannula 3.00 Intake and Output 12/28/17 12/28/17 12/29/17 08:00 16:00 00:00 Intake Total 600 ml Balance 600 ml Assessment & Plan Problem List: (1) DEMENTIA IN OTH DISEASES CLASSD ELSWHR W BEHAVIORAL DISTURB ICD Codes: F02.81 - DEMENTIA IN OTH DISEASES CLASSD ELSWHR W BEHAVIORAL DISTURB Status: Acute (2) ALZHEIMER'S DISEASE WITH LATE ONSET ICD Codes: G30.1 - ALZHEIMER'S DISEASE WITH LATE ONSET Assessment & Plan Patient this time with no behavioral disturbances recently, patient was transferred to the medical/psychiatry unit due to Mela cat being called less evening due to poor O2 sats and was put on IV antibiotics for possible aspiration pneumonia as patient had episode where he was choking on his food during meals. Patient appearing to have stable vitals at this time, we will continue to monitor mood and behavior. We will continue current treatment and continue recommendations as her prior medical team. Discharge planning in progress. Justification for Cont. Inpt. At risk for further decompensation if at lower level of care Discharge Planning To be determined Request HC Surrog/Guard Advoc?: Yes Ananda Weiner MD Dec 28, 2017 11:26
--- NOTE | 2017-12-28 13:16 | PD.TTN ---
Patient Problems 1. Discharge planning 2. Medication compliance 3. Knowledge deficit 4. Lack of coping skills Progress Toward Goals Provider Present: Dr. Asuncion Weiner Provider Input: 12/27/17 patient is in need for med adjusment and improve his behavioral disturbances, medications are being titrated 12/20/17 still medications to be adjusted to help working towards placement Nurse(s) Input: 12/27/17 patient becomes more irritated in afternoon and needs lots of re-direction when he focuses on exit seeking/discharge 12/20/17 received an ETO over weekend Psychiatric Counselors Present: Alena Goins LCSW Psych Therapist Input: 12/27/17 patient is in need of good placement and lori is working with an erisa attorney to get access to his bank accounts to figure what RETIREMENT he can afford 12/20/17 fererrals sent to local facilities and to [facility] lori is actively working on a guardianship and is aware the difficulty with placement, patient remains with no insight, intrusive and in need for ETO Group Spec/RT/OT/COVARRUBIAS Present: Mesha Vaughn, GPS Group Spec/RT/OT/COVARRUBIAS Input: 12/27/17 Patient is visible in milieu and social with select patients and attends select group activities 12/20/17 does not attend groups Alena Goins LCSW Dec 28, 2017 13:16
[2017-12-28 18:33] VITALS: BP 130/65; PULSE 77; RESP 17; TEMP 97.9; O2SAT 91
[2017-12-28] MEDS: REMOVE OLD NICOTINE PATCH T-DERMAL SCH (19:37)
[2017-12-28] MEDS: PRAVASTATIN SOD 40 MG TAB PO SCH (20:18)
[2017-12-28] MEDS: hydrOXYzine HCL 50 MG TAB PO PRN (20:18)
[2017-12-28] MEDS: PRAZOSIN HCL 2 MG CAP PO SCH (20:18)
[2017-12-28] MEDS: LORazepam 0.5 MG TAB age > 65 yrs PO PRN (20:18)
[2017-12-28] MEDS: diphenhydrAMINE HCL 50 MG CAP - HS PRN PO (20:18)
[2017-12-28] MEDS: AMOXICILLIN/CLAVULANATE K 500 MG TAB PO SCH (20:23)
[2017-12-28] MEDS ORDERED: OLANZapine IM 10 MG VIAL IM SCH (21:45)
[2017-12-29] MEDS: AMOXICILLIN/CLAVULANATE K 500 MG TAB PO SCH ×3 (05:59→21:14)
[2017-12-29 06:00] VITALS: BP 160/83; PULSE 85; RESP 18; TEMP 97.3; O2SAT 92
[2017-12-29] MEDS ORDERED: PROPOFOL 500 MG/50 ML INJ 0 ML ONE (06:49)
[2017-12-29] MEDS ORDERED: ARTIFICIAL TEARS OPTH OINT 3.5 APPLIC/3.5 GM TUBO ONE (06:49)
[2017-12-29] MEDS: QUEtiapine FUMARATE 25 MG TAB PO SCH ×3 (09:00→21:14)
[2017-12-29] MEDS: FAMOTIDINE 20 MG TAB PO SCH (09:00)
[2017-12-29] MEDS: GALANTAMINE HYDROBROMIDE 4 MG TAB PO SCH ×2 (09:00→21:14)
[2017-12-29] MEDS: GABAPENTIN 300 MG CAP PO SCH ×2 (09:00→21:14)
[2017-12-29] MEDS: CITALOPRAM HYDROBROMIDE 20 MG TAB PO SCH (09:00)
[2017-12-29] MEDS: NICOTINE 21 MG/24 HR PATCH T-DERMAL SCH (09:00)
--- NOTE | 2017-12-29 11:16 | HHI.PYPN ---
Subjective Remarks Patient seen for follow, chart reviewed. Discussion nursing staff reported the patient h had required ETO last evening after he had a visit with his daughter who she had told him that she would would come back after having left the room and did not which patient became agitated and required ETO. Patient was found lying hospital bed noted B, cooperative. Patient states he is feeling "alright " denying any physical complaints at this time denying difficulty eating and drinking, patient continued to be alert and oriented only to person. Review of Systems Except as stated in HPI: all other systems reviewed are Neg Mental Status Examination Appearance: Appropriate Consciousness: Alert Orientation: Person Motor Activity: Normal gait Speech: Unremarkable Language: Adequate Fund of Knowledge: Adequate Attention and Concentration: Easily Distracted Memory: Impaired Mood: Appropriate Affect: Appropriate Thought Process & Associations: Intact, Loose associations Thought Content: Appropriate Hallucination Type: None Delusion Type: None Suicidal Ideation: No Suicidal Plan: No Suicidal Intention: No Homicidal Ideation: No Homicidal Plan: No Homicidal Intention: No Insight: Poor Judgment: Poor Results Vitals/IOs Vital Signs Date Time Temp Pulse Resp B/P (MAP) Pulse Ox O2 Delivery O2 Flow Rate FiO2 12/29/17 06:00 97.3 85 18 160/83 (108) 92 12/28/17 09:43 21 12/28/17 01:55 Nasal Cannula 3.00 Intake and Output 12/29/17 12/29/17 12/30/17 08:00 16:00 00:00 Intake Total 480 ml Balance 480 ml Assessment & Plan Problem List: (1) DEMENTIA IN OTH DISEASES CLASSD ELSWHR W BEHAVIORAL DISTURB ICD Codes: F02.81 - DEMENTIA IN OTH DISEASES CLASSD ELSWHR W BEHAVIORAL DISTURB Status: Acute (2) ALZHEIMER'S DISEASE WITH LATE ONSET ICD Codes: G30.1 - ALZHEIMER'S DISEASE WITH LATE ONSET Assessment & Plan Patient this time continues to be alert and oriented only to person, at times continues with perseveration or leave the unit but redirectable. Although patient receive ETO last night patient noted to have been required less ETO since admission and noted to be more redirectable. patient recently on IV antibiotics as per prior medical team with the possibility of converting to p.o. meds. Continue current treatment. Continue monitor mood and behavior. Discharge planning progress. Justification for Cont. Inpt. At risk for further decompensation if at lower level of care Request HC Surrog/Guard Advoc?: Yes Ananda Weiner MD Dec 29, 2017 11:16
[2017-12-29 13:36] LABS: BICARBONATE 27.5 MEQ/L (21.0-32.0); CALCIUM 8.5 MG/DL (8.5-10.1); CREATININE 1.47 MG/DL (0.60-1.30)
[2017-12-29] MEDS: LORazepam 0.5 MG TAB age > 65 yrs PO PRN (14:40)
--- NOTE | 2017-12-29 14:52 | PD.TTN ---
Patient Problems 1. Discharge planning 2. Medication compliance 3. Knowledge deficit 4. Lack of coping skills Progress Toward Goals Provider Present: Dr. Asuncion eWiner Provider Input: 12/29/17 patient remains aggitated and getting medications adjusted 12/27/17 patient is in need for med adjusment and improve his behavioral disturbances, medications are being titrated 12/20/17 still medications to be adjusted to help working towards placement Nurse(s) Input: 12/27/17 patient becomes more irritated in afternoon and needs lots of re-direction when he focuses on exit seeking/discharge 12/20/17 received an ETO over weekend Psychiatric Counselors Present: Alena Goins LCSW Psych Therapist Input: 12/29/17 patient is in need for placement and behavioral improvement, [facility] patient but could not reach lori yet 12/27/17 patient is in need of good placement and lori is working with an erisa attorney to get access to his bank accounts to figure what RESIDENTIAL he can afford 12/20/17 fererrals sent to local facilities and to [facility] lori is actively working on a guardianship and is aware the difficulty with placement, patient remains with no insight, intrusive and in need for ETO Group Spec/RT/OT/COVARRUBIAS Present: Mesha Vaughn, PARUL Group Spec/RT/OT/COVARRUBIAS Input: 12/29/17 attends select groups activities and easily redirected in groups 12/27/17 Patient is visible in milieu and social with select patients and attends select group activities 12/20/17 does not attend groups Alena Goins LCSW Dec 29, 2017 14:52
[2017-12-29] MEDS ORDERED: OLANZapine IM 10 MG VIAL IM ONE (15:45)
[2017-12-29 18:00] VITALS: BP 184/82; PULSE 80; RESP 17; TEMP 98; O2SAT 95
[2017-12-29] MEDS: REMOVE OLD NICOTINE PATCH T-DERMAL SCH (20:00)
[2017-12-29] MEDS: PRAVASTATIN SOD 40 MG TAB PO SCH (21:14)
[2017-12-29] MEDS: PRAZOSIN HCL 2 MG CAP PO SCH (21:14)
[2017-12-29] MEDS: hydrOXYzine HCL 50 MG TAB PO PRN (21:14)
[2017-12-29] MEDS: diphenhydrAMINE HCL 50 MG CAP - HS PRN PO (21:15)
[2017-12-30] MEDS: AMOXICILLIN/CLAVULANATE K 500 MG TAB PO SCH ×3 (05:34→21:34)
[2017-12-30 06:28] VITALS: BP 194/88; PULSE 98; RESP 17; TEMP 97.6; O2SAT 92
[2017-12-30] MEDS: GALANTAMINE HYDROBROMIDE 4 MG TAB PO SCH ×2 (09:00→21:34)
[2017-12-30] MEDS: NICOTINE 21 MG/24 HR PATCH T-DERMAL SCH (09:00)
[2017-12-30] MEDS: QUEtiapine FUMARATE 25 MG TAB PO SCH ×3 (09:00→21:34)
[2017-12-30] MEDS: GABAPENTIN 300 MG CAP PO SCH ×2 (09:00→21:34)
[2017-12-30] MEDS: CITALOPRAM HYDROBROMIDE 20 MG TAB PO SCH (09:00)
[2017-12-30] MEDS: FAMOTIDINE 20 MG TAB PO SCH (09:00)
[2017-12-30 09:20] VITALS: BP 152/71; PULSE 73; RESP 20; TEMP 97.5; O2SAT 96
--- NOTE | 2017-12-30 13:39 | HHI.PYPN ---
Subjective Remarks Patient seen for follow, chart reviewed. Discussion nursing staff reported the patient had required ETO last evening but has been doing well this morning, slept well, compliant with treatment, and pleasant this morning. Patient found ambulating on the unit noted be good spirits, denying physical complaints other than having had loose stools once this morning. Patient continues to be alert and oriented only to person, has not had any behavioral disturbances this morning, noted to be pleasant during interview. Patient had a fall which was reported by nursing staff to rider which patient had fell on her knee but was later noted to be ambulating fine without any physical complaints. Review of Systems Except as stated in HPI: all other systems reviewed are Neg Mental Status Examination Appearance: Appropriate Consciousness: Alert Orientation: Person Motor Activity: Normal gait Speech: Unremarkable Language: Adequate Fund of Knowledge: Adequate Attention and Concentration: Easily Distracted Memory: Impaired Mood: Appropriate Affect: Appropriate Thought Process & Associations: Intact, Loose associations Thought Content: Appropriate Hallucination Type: None Delusion Type: None Suicidal Ideation: No Suicidal Plan: No Suicidal Intention: No Homicidal Ideation: No Homicidal Plan: No Homicidal Intention: No Insight: Poor Judgment: Poor Results Vitals/IOs Vital Signs Date Time Temp Pulse Resp B/P (MAP) Pulse Ox O2 Delivery O2 Flow Rate FiO2 12/30/17 09:20 97.5 73 20 152/71 (98) 96 12/28/17 09:43 21 12/28/17 01:55 Nasal Cannula 3.00 Intake and Output 12/30/17 12/30/17 12/31/17 08:00 16:00 00:00 Intake Total 2400 ml Balance 2400 ml Assessment & Plan Problem List: (1) DEMENTIA IN OTH DISEASES CLASSD ELSWHR W BEHAVIORAL DISTURB ICD Codes: F02.81 - DEMENTIA IN OTH DISEASES CLASSD ELSWHR W BEHAVIORAL DISTURB Status: Acute (2) ALZHEIMER'S DISEASE WITH LATE ONSET ICD Codes: G30.1 - ALZHEIMER'S DISEASE WITH LATE ONSET Assessment & Plan Patient this time continues with baseline confusion secondary to dementia. Patient had required ETO last evening, patient becomes irritable when aware that he is in a locked unit but otherwise has been pleasant and cooperative with staff. Patient had recent fall this morning we will continue to monitor right knee. Continue to monitor for orthostatic hypotension as patient currently on neuroleptic. We will continue patient on current treatment. Will continue monitor mood and behavior. Discharge planning in progress. Justification for Cont. Inpt. At risk of further decompensation at lower level of care Request HC Surrog/Guard Advoc?: Yes Ananda Weiner MD Dec 30, 2017 13:38
[2017-12-30] MEDS: LORazepam 2 MG/ML VIAL - age > 65 yrs IM PRN (14:54)
[2017-12-30 17:56] VITALS: BP 128/65; PULSE 72; RESP 17; TEMP 97.5; O2SAT 98
[2017-12-30 20:30] VITALS: BP 166/81; PULSE 93; RESP 18; O2SAT 94
[2017-12-30] MEDS: REMOVE OLD NICOTINE PATCH T-DERMAL SCH (21:00)
[2017-12-30] MEDS: PRAZOSIN HCL 2 MG CAP PO SCH (21:34)
[2017-12-30] MEDS: PRAVASTATIN SOD 40 MG TAB PO SCH (21:35)
[2017-12-30 21:56] VITALS: O2SAT 98
[2017-12-31 05:42] VITALS: BP 161/76; PULSE 103; RESP 16; TEMP 97.9; O2SAT 93
[2017-12-31] MEDS: AMOXICILLIN/CLAVULANATE K 500 MG TAB PO SCH ×2 (06:31→14:00)
[2017-12-31] MEDS ORDERED: PROPOFOL 200 MG/20 ML AMP ONE (08:12)
[2017-12-31] MEDS: CITALOPRAM HYDROBROMIDE 20 MG TAB PO SCH (08:36)
[2017-12-31] MEDS: FAMOTIDINE 20 MG TAB PO SCH (08:36)
[2017-12-31] MEDS: QUEtiapine FUMARATE 25 MG TAB PO SCH ×2 (08:36→16:00)
[2017-12-31] MEDS: GABAPENTIN 300 MG CAP PO SCH (08:36)
[2017-12-31] MEDS: GALANTAMINE HYDROBROMIDE 4 MG TAB PO SCH ×2 (08:38→21:00)
[2017-12-31] MEDS: NICOTINE 21 MG/24 HR PATCH T-DERMAL SCH (09:00)
[2017-12-31] MEDS: REMOVE OLD NICOTINE PATCH T-DERMAL SCH (09:24)
[2017-12-31 09:27] LABS: BASOPHIL # 0.1 TH/MM3 (0-0.2); BASOPHIL % 0.8 % (0.0-2.0); EOSINOPHIL # 0.3 TH/MM3 (0-0.4); EOSINOPHIL % 3.9 % (0.0-4.0); HEMOGLOBIN 12.6 GM/DL (13.0-17.0); LYMPH % 12.8 % (9.0-44.0); LYMPHOCYTE # 0.9 TH/MM3 (1.0-4.8); MEAN CELL VOLUME 92.9 FL (80.0-100.0); MEAN CORPUSCULAR HEMOGLOBIN 31.5 PG (27.0-34.0); MEAN CORPUSCULAR HGB CONC 33.9 % (32.0-36.0); MONO % 11.8 % (0.0-8.0); MONOCYTE # 0.8 TH/MM3 (0-0.9); NEUT % 70.7 % (16.0-70.0); PLATELET COUNT 345 TH/MM3 (150-450); RED BLOOD COUNT 3.98 MIL/MM3 (4.50-5.90); RED CELL DISTRIBUTION WIDTH 13.4 % (11.6-17.2); WHITE BLOOD COUNT 7.1 TH/MM3 (4.0-11.0)
[2017-12-31 09:50] LABS: ALBUMIN 3.4 GM/DL (3.4-5.0); AST (GOT) 33 U/L (15-37); BLOOD UREA NITROGEN 24 MG/DL (7-18); CALCIUM 8.8 MG/DL (8.5-10.1); CHLORIDE 107 MEQ/L (98-107); CREATININE 1.41 MG/DL (0.60-1.30); GLOMERULAR FILTRATION RATE 48 ML/MIN (>89); GLUCOSE,RANDOM 90 MG/DL (74-106); SODIUM (NA) 141 MEQ/L (136-145)
[2017-12-31 09:52] LABS: ALT (GPT) 44 U/L (12-78)
[2017-12-31 09:55] LABS: ALKALINE PHOSPHATASE 87 U/L (45-117); TOTAL BILIRUBIN ADULT 0.5 MG/DL (0.2-1.0); TOTAL PROTEIN 7.8 GM/DL (6.4-8.2)
--- NOTE | 2017-12-31 14:26 | HHI.PYPN ---
Subjective Remarks Patient seen for follow, chart reviewed. Discussion nursing staff reported the patient continues to be focused on leaving the unit at times noted to be somewhat irritable and agitated demanding to be let out but redirectable. Patient was noted to become agitated with staff and demanding to be let out prior to interview with nurse was able to redirect the patient to the dayroom which he was able to regain behavioral control. Patient is a patient was found in the room noted calm, cooperative in interview with sba underwriter today. Patient states that he is feeling good, denies any physical complaints at this time was not assertive on exiting the unit or demanding at this time. Patient states eating and drinking well no difficulty or bowel movement. Patient continues to be alert and oriented only to person. Review of Systems Except as stated in HPI: all other systems reviewed are Neg Mental Status Examination Appearance: Appropriate Consciousness: Alert Orientation: Person Motor Activity: Normal gait Speech: Unremarkable Language: Adequate Fund of Knowledge: Adequate Attention and Concentration: Easily Distracted Memory: Impaired Mood: Appropriate Affect: Appropriate Thought Process & Associations: Intact, Loose associations Thought Content: Appropriate Hallucination Type: None Delusion Type: None Suicidal Ideation: No Suicidal Plan: No Suicidal Intention: No Homicidal Ideation: No Homicidal Plan: No Homicidal Intention: No Insight: Poor Judgment: Poor Results Labs Labs reviewed Test 12/31/17 08:10 White Blood Count 7.1 TH/MM3 Red Blood Count 3.98 MIL/MM3 Hemoglobin 12.6 GM/DL Hematocrit 37.0 % Mean Corpuscular Volume 92.9 FL Mean Corpuscular Hemoglobin 31.5 PG Mean Corpuscular Hemoglobin Concent 33.9 % Red Cell Distribution Width 13.4 % Platelet Count 345 TH/MM3 Mean Platelet Volume 7.0 FL Neutrophils (%) (Auto) 70.7 % Lymphocytes (%) (Auto) 12.8 % Monocytes (%) (Auto) 11.8 % Eosinophils (%) (Auto) 3.9 % Basophils (%) (Auto) 0.8 % Neutrophils # (Auto) 5.0 TH/MM3 Lymphocytes # (Auto) 0.9 TH/MM3 Monocytes # (Auto) 0.8 TH/MM3 Eosinophils # (Auto) 0.3 TH/MM3 Basophils # (Auto) 0.1 TH/MM3 CBC Comment DIFF FINAL Differential Comment Blood Urea Nitrogen 24 MG/DL Creatinine 1.41 MG/DL Random Glucose 90 MG/DL Total Protein 7.8 GM/DL Albumin 3.4 GM/DL Calcium Level 8.8 MG/DL Alkaline Phosphatase 87 U/L Aspartate Amino Transf (AST/SGOT) 33 U/L Alanine Aminotransferase (ALT/SGPT) 44 U/L Total Bilirubin 0.5 MG/DL Sodium Level 141 MEQ/L Potassium Level 4.1 MEQ/L Chloride Level 107 MEQ/L Carbon Dioxide Level 28.0 MEQ/L Anion Gap 6 MEQ/L Estimat Glomerular Filtration Rate 48 ML/MIN Total Creatine Kinase 251 U/L Vitals/IOs Vital Signs Date Time Temp Pulse Resp B/P (MAP) Pulse Ox O2 Delivery O2 Flow Rate FiO2 12/31/17 05:42 97.9 103 16 161/76 (104) 93 12/30/17 21:56 21 12/28/17 01:55 Nasal Cannula 3.00 Assessment & Plan Problem List: (1) DEMENTIA IN OTH DISEASES CLASSD ELSWHR W BEHAVIORAL DISTURB ICD Codes: F02.81 - DEMENTIA IN OTH DISEASES CLASSD ELSWHR W BEHAVIORAL DISTURB Status: Acute (2) ALZHEIMER'S DISEASE WITH LATE ONSET ICD Codes: G30.1 - ALZHEIMER'S DISEASE WITH LATE ONSET Assessment & Plan Patient continues with episodes of irritability and perseveration on leaving the unit but has been more redirectible. Despite having less frequency of behavioral disturbances continues to require episodic ETOs. Will increase queitapine to 25mg/12.5/37.5mg for mood stabilization. Continue rest of medications. Continue to monitor mood and behavior. Discharge planning in progress. Justification for Cont. Inpt. At risk for further decompensation if at lower level of care Request HC Surrog/Guard Advoc?: Yes Ananda Weiner MD Dec 31, 2017 14:26
[2017-12-31] MEDS: LORazepam 0.5 MG TAB age > 65 yrs PO PRN (19:09)
[2018-01-01] MEDS: GABAPENTIN 300 MG CAP PO SCH ×3 (00:21→20:22)
[2018-01-01] MEDS: PRAVASTATIN SOD 40 MG TAB PO SCH ×2 (00:21→20:21)
[2018-01-01] MEDS: PRAZOSIN HCL 2 MG CAP PO SCH ×2 (00:21→20:21)
[2018-01-01] MEDS: AMOXICILLIN/CLAVULANATE K 500 MG TAB PO SCH ×4 (00:22→21:11)
[2018-01-01] MEDS: QUEtiapine FUMARATE 25 MG TAB PO SCH ×4 (00:22→20:21)
[2018-01-01] MEDS: hydrOXYzine HCL 50 MG TAB PO PRN (00:22)
[2018-01-01 06:03] VITALS: BP 140/65; PULSE 64; RESP 16; TEMP 97.9; O2SAT 94
[2018-01-01] MEDS: NICOTINE 21 MG/24 HR PATCH T-DERMAL SCH (09:00)
[2018-01-01] MEDS: GALANTAMINE HYDROBROMIDE 4 MG TAB PO SCH ×2 (09:05→20:22)
[2018-01-01] MEDS: FAMOTIDINE 20 MG TAB PO SCH (09:05)
[2018-01-01] MEDS: CITALOPRAM HYDROBROMIDE 20 MG TAB PO SCH (09:06)
--- NOTE | 2018-01-01 09:14 | EKG ---
Date Performed: 12/30/2017 Time Performed: 17:44:58 PTAGE: 87 years EKG: Sinus rhythm WITH SINUS ARRHYTHMIA NORMAL ECG PREVIOUS TRACING : 12/13/2017 13.56 DOCTOR: Lucia Noel Interpretating Date/Time 01/01/2018 09:10:41
--- NOTE | 2018-01-01 12:45 | HHI.PYPN ---
Subjective Remarks Patient was seen and case discussed with nursing. Patient is alert and oriented 2. Bright and cheerful during the interview. Making jokes throughout. Remains mildly confused. Denies any auditory or visual hallucinations. Mental Status Examination Appearance: Appropriate Consciousness: Alert Orientation: Person, Place Motor Activity: Normal gait Speech: Unremarkable Language: Adequate Fund of Knowledge: Adequate Attention and Concentration: Easily Distracted Memory: Impaired Mood: Appropriate Affect: Appropriate Thought Process & Associations: Intact, Loose associations Thought Content: Appropriate Hallucination Type: None Delusion Type: None Suicidal Ideation: No Suicidal Plan: No Suicidal Intention: No Homicidal Ideation: No Homicidal Plan: No Homicidal Intention: No Insight: Poor Judgment: Poor Results Vitals/IOs Vital Signs Date Time Temp Pulse Resp B/P (MAP) Pulse Ox O2 Delivery O2 Flow Rate FiO2 01/01/18 06:03 97.9 64 16 140/65 (90) 94 12/30/17 21:56 21 Intake and Output 01/01/18 01/01/18 01/02/18 08:00 16:00 00:00 Intake Total 240 ml Balance 240 ml Assessment & Plan Problem List: (1) DEMENTIA IN OTH DISEASES CLASSD ELSWHR W BEHAVIORAL DISTURB ICD Codes: F02.81 - DEMENTIA IN OTH DISEASES CLASSD ELSWHR W BEHAVIORAL DISTURB Status: Acute (2) ALZHEIMER'S DISEASE WITH LATE ONSET ICD Codes: G30.1 - ALZHEIMER'S DISEASE WITH LATE ONSET Assessment & Plan Continue current treatment plan Justification for Cont. Inpt. Patient would decompensate in a less restrictive setting Request HC Surrog/Guard Advoc?: Yes Cruzito Whalen DO Jan 01, 2018 12:45
[2018-01-01 18:30] VITALS: BP 161/77; PULSE 75; RESP 18; TEMP 97.8; O2SAT 96
[2018-01-01] MEDS: LORazepam 0.5 MG TAB age > 65 yrs PO PRN (18:30)
[2018-01-01] MEDS: REMOVE OLD NICOTINE PATCH T-DERMAL SCH (20:22)
[2018-01-01] MEDS: diphenhydrAMINE HCL 50 MG CAP - HS PRN PO (20:22)
[2018-01-02 05:33] VITALS: BP 152/74; PULSE 84; RESP 18; TEMP 97.8; O2SAT 92
[2018-01-02] MEDS: AMOXICILLIN/CLAVULANATE K 500 MG TAB PO SCH ×2 (05:33→09:07)
[2018-01-02] MEDS: NICOTINE 21 MG/24 HR PATCH T-DERMAL SCH (09:00)
[2018-01-02] MEDS: GABAPENTIN 300 MG CAP PO SCH ×2 (09:06→21:12)
[2018-01-02] MEDS: FAMOTIDINE 20 MG TAB PO SCH (09:07)
[2018-01-02] MEDS: QUEtiapine FUMARATE 25 MG TAB PO SCH ×3 (09:07→21:00)
[2018-01-02] MEDS: CITALOPRAM HYDROBROMIDE 20 MG TAB PO SCH (09:07)
[2018-01-02] MEDS: GALANTAMINE HYDROBROMIDE 4 MG TAB PO SCH ×2 (09:07→21:12)
--- NOTE | 2018-01-02 11:55 | HHI.PYPN ---
Subjective Remarks Patient was seen and case discussed with nursing. Patient is alert and oriented 2. Behaving well on the unit. No outbursts. Does get easily confused with what is going on in the unit. Denies any symptoms. Per nursing he sundown in the evening and becomes agitated and difficult to control. Mental Status Examination Appearance: Appropriate Consciousness: Alert Orientation: Person, Place Motor Activity: Normal gait Speech: Unremarkable Language: Adequate Fund of Knowledge: Adequate Attention and Concentration: Easily Distracted Memory: Impaired Mood: Appropriate Affect: Appropriate Thought Process & Associations: Intact, Loose associations Thought Content: Appropriate Hallucination Type: None Delusion Type: None Suicidal Ideation: No Suicidal Plan: No Suicidal Intention: No Homicidal Ideation: No Homicidal Plan: No Homicidal Intention: No Insight: Poor Judgment: Poor Results Vitals/IOs Vital Signs Date Time Temp Pulse Resp B/P (MAP) Pulse Ox O2 Delivery O2 Flow Rate FiO2 01/02/18 05:33 97.8 84 18 152/74 (100) 92 12/30/17 21:56 21 Assessment & Plan Problem List: (1) DEMENTIA IN OTH DISEASES CLASSD ELSWHR W BEHAVIORAL DISTURB ICD Codes: F02.81 - DEMENTIA IN OTH DISEASES CLASSD ELSWHR W BEHAVIORAL DISTURB Status: Acute (2) ALZHEIMER'S DISEASE WITH LATE ONSET ICD Codes: G30.1 - ALZHEIMER'S DISEASE WITH LATE ONSET Assessment & Plan Increase afternoon Seroquel dose to 25 mg Justification for Cont. Inpt. Patient would decompensate in a less restrictive setting Request HC Surrog/Guard Advoc?: Yes Cruzito Whalen DO Jan 02, 2018 11:55
[2018-01-02] MEDS: hydrOXYzine HCL 50 MG TAB PO PRN (13:08)
[2018-01-02] MEDS: LORazepam 0.5 MG TAB age > 65 yrs PO PRN (17:57)
[2018-01-02 18:12] VITALS: BP 150/80; PULSE 84; RESP 20; TEMP 97.7; O2SAT 95
[2018-01-02] MEDS ORDERED: HALOPERIDOL LACTATE 5 MG/ML AMP IM ONE (19:45)
[2018-01-02] MEDS ORDERED: HALOPERIDOL 5 MG TAB PO ONE (19:45)
[2018-01-02] MEDS: PRAZOSIN HCL 2 MG CAP PO SCH (21:00)
[2018-01-02] MEDS: REMOVE OLD NICOTINE PATCH T-DERMAL SCH (21:00)
[2018-01-02] MEDS: PRAVASTATIN SOD 40 MG TAB PO SCH (21:12)
[2018-01-03 06:13] VITALS: BP 142/74; PULSE 68; RESP 16; TEMP 98.4; O2SAT 95
[2018-01-03] MEDS: CITALOPRAM HYDROBROMIDE 20 MG TAB PO SCH (08:17)
[2018-01-03] MEDS: QUEtiapine FUMARATE 25 MG TAB PO SCH ×3 (08:17→20:36)
[2018-01-03] MEDS: GABAPENTIN 300 MG CAP PO SCH ×2 (08:17→20:36)
[2018-01-03] MEDS: FAMOTIDINE 20 MG TAB PO SCH (08:17)
[2018-01-03] MEDS: LORazepam 0.5 MG TAB age > 65 yrs PO PRN (08:18)
[2018-01-03] MEDS: NICOTINE 21 MG/24 HR PATCH T-DERMAL SCH (08:18)
[2018-01-03] MEDS: GALANTAMINE HYDROBROMIDE 4 MG TAB PO SCH ×2 (08:18→20:36)
[2018-01-03] MEDS: hydrOXYzine HCL 50 MG TAB PO PRN (16:01)
--- NOTE | 2018-01-03 17:27 | HHI.PYPN ---
Subjective Remarks Patient seen for follow up, chart reviewed. Discussion nursing staff reported the patient has had good behavior today with no behavioral disturbances. Patient was found in the room notably, cooperative. Patient states he is feeling well, was found attempting to assist with helping staff cleaned up spilled water on the floor. Patient denies any physical complaints at this time , reports feeling well and taking all of his medications. Patient continues to be alert and oriented only to person. Patient later in the afternoon was noted to be somewhat irritable as patient believes that there was someone that had taken a bag out of his vehicle in the parking lot but was redirectable not requiring any ETO's. Review of Systems Except as stated in HPI: all other systems reviewed are Neg Mental Status Examination Appearance: Appropriate Consciousness: Alert Orientation: Person, Place Motor Activity: Normal gait Speech: Unremarkable Language: Adequate Fund of Knowledge: Adequate Attention and Concentration: Easily Distracted Memory: Impaired Mood: Appropriate Affect: Appropriate Thought Process & Associations: Intact, Loose associations Thought Content: Appropriate Hallucination Type: None Delusion Type: None Suicidal Ideation: No Suicidal Plan: No Suicidal Intention: No Homicidal Ideation: No Homicidal Plan: No Homicidal Intention: No Insight: Poor Judgment: Poor Results Vitals/IOs Vital Signs Date Time Temp Pulse Resp B/P (MAP) Pulse Ox O2 Delivery O2 Flow Rate FiO2 01/03/18 06:13 98.4 68 16 142/74 (96) 95 12/30/17 21:56 21 Intake and Output 01/03/18 01/03/18 01/04/18 08:00 16:00 00:00 Intake Total 0 ml Balance 0 ml Assessment & Plan Problem List: (1) DEMENTIA IN OTH DISEASES CLASSD ELSWHR W BEHAVIORAL DISTURB ICD Codes: F02.81 - DEMENTIA IN OTH DISEASES CLASSD ELSWHR W BEHAVIORAL DISTURB Status: Acute (2) ALZHEIMER'S DISEASE WITH LATE ONSET ICD Codes: G30.1 - ALZHEIMER'S DISEASE WITH LATE ONSET Assessment & Plan Patient this time continues to be confused secondary to neurocognitive deficits. Patient had required ETO recently but has been more redirectable. Patient's Seroquel has been recently increased to 25/25/37.5 mg which he is tolerating well. Continue to monitor for orthostatic hypotension. Continue rest of medications. Continue monitor mood and behavior. Discharge planning in progress. Justification for Cont. Inpt. At risk for further decompensation if at lower level of care Request HC Surrog/Guard Advoc?: Yes Ananda Weiner MD Jan 03, 2018 17:27
[2018-01-03 18:06] VITALS: BP 167/70; PULSE 67; RESP 18; TEMP 97.3; O2SAT 96
[2018-01-03] MEDS: HALOPERIDOL 5 MG TAB PO ONE ×2 (18:59→19:00)
[2018-01-03] MEDS ORDERED: HALOPERIDOL LACTATE 5 MG/ML AMP ONE (19:02)
[2018-01-03] MEDS ORDERED: HALOPERIDOL LACTATE 5 MG/ML AMP IM PRN (19:15)
[2018-01-03] MEDS: PRAZOSIN HCL 2 MG CAP PO SCH (20:38)
[2018-01-03] MEDS: PRAVASTATIN SOD 40 MG TAB PO SCH (20:38)
[2018-01-03] MEDS: REMOVE OLD NICOTINE PATCH T-DERMAL SCH (20:42)
[2018-01-04 06:00] VITALS: BP 118/59; PULSE 68; RESP 15; TEMP 98.4; O2SAT 96
[2018-01-04] MEDS: QUEtiapine FUMARATE 25 MG TAB PO SCH ×3 (08:36→21:35)
[2018-01-04] MEDS: CITALOPRAM HYDROBROMIDE 20 MG TAB PO SCH (08:36)
[2018-01-04] MEDS: GALANTAMINE HYDROBROMIDE 4 MG TAB PO SCH ×2 (08:36→21:36)
[2018-01-04] MEDS: FAMOTIDINE 20 MG TAB PO SCH (08:36)
[2018-01-04] MEDS: GABAPENTIN 300 MG CAP PO SCH ×2 (08:37→21:36)
[2018-01-04] MEDS: NICOTINE 21 MG/24 HR PATCH T-DERMAL SCH (08:37)
--- NOTE | 2018-01-04 13:43 | HHI.PYPN ---
Subjective Remarks Patient seen for follow, chart reviewed. Discussion nursing staff reported the patient yesterday in the afternoon had become agitated and required Haldol 5 mg IM. Patient today with no behavioral disturbances. 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 Patient denies any physical complaints at this time. Patient compliant with medications. Patient continues to be alert and oriented only to person. Review of Systems Except as stated in HPI: all other systems reviewed are Neg Mental Status Examination Appearance: Appropriate Consciousness: Alert Orientation: Person, Place Motor Activity: Normal gait Speech: Unremarkable Language: Adequate Fund of Knowledge: Adequate Attention and Concentration: Easily Distracted Memory: Impaired Mood: Appropriate Affect: Appropriate Thought Process & Associations: Intact, Loose associations Thought Content: Appropriate Hallucination Type: None Delusion Type: None Suicidal Ideation: No Suicidal Plan: No Suicidal Intention: No Homicidal Ideation: No Homicidal Plan: No Homicidal Intention: No Insight: Poor Judgment: Poor Results Vitals/IOs Vital Signs Date Time Temp Pulse Resp B/P (MAP) Pulse Ox O2 Delivery O2 Flow Rate FiO2 01/04/18 06:00 98.4 68 15 118/59 (78) 96 Intake and Output 01/04/18 01/04/18 01/05/18 08:00 16:00 00:00 Intake Total 360 ml Balance 360 ml Assessment & Plan Problem List: (1) DEMENTIA IN OTH DISEASES CLASSD ELSWHR W BEHAVIORAL DISTURB ICD Codes: F02.81 - DEMENTIA IN OTH DISEASES CLASSD ELSWHR W BEHAVIORAL DISTURB Status: Acute (2) ALZHEIMER'S DISEASE WITH LATE ONSET ICD Codes: G30.1 - ALZHEIMER'S DISEASE WITH LATE ONSET Assessment & Plan Patient this time continues to have good behavioral control but usually began to have some preoccupation with exiting the unit with increased irritability at times agitation late afternoon which may be due to . We will decrease quetiapine to 25 mg a.m./37.5 mg p.m./37.5 mg at bedtime for mood stabilization. Continue rest of medications. Continue monitor mood and behavior. Continue to monitor for orthostatic hypotension due to current neuroleptics. Discharge planning in progress. Justification for Cont. Inpt. At risk of further decompensation at lower level of care. Discharge Planning To be determined. Request HC Surrog/Guard Advoc?: Yes Ananda Weiner MD Jan 04, 2018 13:43
--- NOTE | 2018-01-04 13:45 | PD.TTN ---
Patient Problems 1. Discharge planning 2. Medication compliance 3. Knowledge deficit 4. Lack of coping skills Progress Toward Goals Provider Present: Dr. Asuncion Weiner Provider Input: 01/03/18 remains a placement issue 12/29/17 patient remains aggitated and getting medications adjusted 12/27/17 patient is in need for med adjusment and improve his behavioral disturbances, medications are being titrated 12/20/17 still medications to be adjusted to help working towards placement Nurse(s) Input: 12/27/17 patient becomes more irritated in afternoon and needs lots of re-direction when he focuses on exit seeking/discharge 12/20/17 received an ETO over weekend Psychiatric Counselors Present: Alena Goins LCSW Psych Therapist Input: 01/03/18 patient remains without insight and in need of redirection to cooperate, he is wanting to leave and remains a placement issue and daughter struggling with arranging his benefits 12/29/17 patient is in need for placement and behavioral improvement, [facility] consider patient but could not reach lori yet 12/27/17 patient is in need of good placement and lori is working with an pattern designer to get access to his bank accounts to figure what MAYELA he can afford 12/20/17 fererrals sent to local facilities and to [facility] lori is actively working on a guardianship and is aware the difficulty with placement, patient remains with no insight, intrusive and in need for ETO Group Spec/RT/OT/COVARRUBIAS Present: Mesha Vaughn, PARUL Group Spec/RT/OT/COVARRUBIAS Input: 01/04/48 patient attends select groups when attending needs little redirection 12/29/17 attends select groups activities and easily redirected in groups 12/27/17 Patient is visible in milieu and social with select patients and attends select group activities 12/20/17 does not attend groups Alena Goins LCSW Jan 04, 2018 13:45
[2018-01-04 18:01] VITALS: BP 120/74; PULSE 63; RESP 16; TEMP 98.4; O2SAT 98
[2018-01-04] MEDS: REMOVE OLD NICOTINE PATCH T-DERMAL SCH (21:00)
[2018-01-04] MEDS: PRAZOSIN HCL 2 MG CAP PO SCH (21:34)
[2018-01-04] MEDS: LORazepam 0.5 MG TAB age > 65 yrs PO PRN (21:36)
[2018-01-04] MEDS: PRAVASTATIN SOD 40 MG TAB PO SCH (21:36)
[2018-01-05 05:53] VITALS: BP 138/66; PULSE 90; RESP 18; TEMP 97.8; O2SAT 91
[2018-01-05] MEDS: CITALOPRAM HYDROBROMIDE 20 MG TAB PO SCH (07:50)
[2018-01-05] MEDS: NICOTINE 21 MG/24 HR PATCH T-DERMAL SCH (07:50)
[2018-01-05] MEDS: FAMOTIDINE 20 MG TAB PO SCH (07:50)
[2018-01-05] MEDS: QUEtiapine FUMARATE 25 MG TAB PO SCH ×3 (07:50→22:15)
[2018-01-05] MEDS: GALANTAMINE HYDROBROMIDE 4 MG TAB PO SCH ×2 (07:50→22:14)
[2018-01-05] MEDS: GABAPENTIN 300 MG CAP PO SCH ×2 (07:50→22:15)
--- NOTE | 2018-01-05 11:06 | PD.TTN ---
Patient Problems 1. Discharge planning 2. Medication compliance 3. Knowledge deficit 4. Lack of coping skills Progress Toward Goals Provider Present: Dr. Asuncion Weiner Provider Input: 01/05/18: Increase afternoon Meds 01/03/18 remains a placement issue 12/29/17 patient remains aggitated and getting medications adjusted 12/27/17 patient is in need for med adjusment and improve his behavioral disturbances, medications are being titrated 12/20/17 still medications to be adjusted to help working towards placement Nurse(s) Input: 12/27/17 patient becomes more irritated in afternoon and needs lots of re-direction when he focuses on exit seeking/discharge 12/20/17 received an ETO over weekend Psychiatric Counselors Present: Alena Goins [facility], Nevin Aguilar, [facility], Marlo Person Jr., [facility], Myrna Canseco, [facility], Nancy Almaraz, [facility] Psych Therapist Input: 01/05/18: Remains sundowning, somewhat redirectable. 01/03/18 patient remains without insight and in need of redirection to cooperate, he is wanting to leave and remains a placement issue and daughter struggling with arranging his benefits 12/29/17 patient is in need for placement and behavioral improvement, [facility] patient but could not reach lori yet 12/27/17 patient is in need of good placement and lori is working with an deputy county attorney to get access to his bank accounts to figure what INTERMEDIATE he can afford 12/20/17 fererrals sent to local facilities and to [facility] area lori is actively working on a guardianship and is aware the difficulty with placement, patient remains with no insight, intrusive and in need for ETO Group Spec/RT/OT/COVARRUBIAS Present: PARUL Perea, Rafi Hendricks, OT Group Spec/RT/OT/COVARRUBIAS Input: 01/05/18: Unpredictabe behaviors: Frequently needs redirection. 01/04/48 patient attends select groups when attending needs little redirection 12/29/17 attends select groups activities and easily redirected in groups 12/27/17 Patient is visible in milieu and social with select patients and attends select group activities 12/20/17 does not attend groups Documentation Scribe: Mesha Zurita Jan 05, 2018 11:06
[2018-01-05] MEDS: hydrOXYzine HCL 50 MG TAB PO PRN (13:03)
--- NOTE | 2018-01-05 16:41 | HHI.PYPN ---
Subjective Remarks Patient seen for follow-up, chart reviewed. Discussion nursing staff reported the patient continues to be exit seeking but redirectable. Patient was found prior to interview asking staff to be able to be let out of the unit but was redirectable. Patient later was found sitting in the room notably, cooperative. Patient states that he is "late for the meeting" as patient continues to be alert and oriented only to person. Patient denies any physical complaints at this time. Patient continues to require redirection when focused on exiting the unit. Patient recently was moved to a different unit which likely prompted some irritability due to the change in environment. Review of Systems Except as stated in HPI: all other systems reviewed are Neg Mental Status Examination Appearance: Appropriate Consciousness: Alert Orientation: Person, Place Motor Activity: Normal gait Speech: Unremarkable Language: Adequate Fund of Knowledge: Adequate Attention and Concentration: Easily Distracted Memory: Impaired Mood: Appropriate Affect: Appropriate Thought Process & Associations: Intact, Loose associations Thought Content: Appropriate Hallucination Type: None Delusion Type: None Suicidal Ideation: No Suicidal Plan: No Suicidal Intention: No Homicidal Ideation: No Homicidal Plan: No Homicidal Intention: No Insight: Poor Judgment: Poor Results Vitals/IOs Vital Signs Date Time Temp Pulse Resp B/P (MAP) Pulse Ox O2 Delivery O2 Flow Rate FiO2 01/05/18 05:53 97.8 90 18 138/66 (90) 91 Intake and Output 01/05/18 01/05/18 01/06/18 08:00 16:00 00:00 Intake Total 600 ml 480 ml Balance 600 ml 480 ml Assessment & Plan Problem List: (1) DEMENTIA IN OTH DISEASES CLASSD ELSWHR W BEHAVIORAL DISTURB ICD Codes: F02.81 - DEMENTIA IN OTH DISEASES CLASSD ELSWHR W BEHAVIORAL DISTURB Status: Acute (2) ALZHEIMER'S DISEASE WITH LATE ONSET ICD Codes: G30.1 - ALZHEIMER'S DISEASE WITH LATE ONSET Assessment & Plan Patient this time continues to be alert and oriented only to person, continues to have some irritability when reminded of him being a locked unit but redirectable. Patient recent irritability likely due to him being transferred to a different unit and having a change in his environment. Continue to monitor mood and behavior. Continue current treatment. Discharge planning in progress. Justification for Cont. Inpt. At risk for further decompensation if at lower level of care Request HC Surrog/Guard Advoc?: Yes Ananda Weiner MD Jan 05, 2018 16:41
[2018-01-05] MEDS: LORazepam 0.5 MG TAB age > 65 yrs PO PRN (17:50)
[2018-01-05 18:17] VITALS: BP 163/80; PULSE 64; RESP 16; TEMP 98.3; O2SAT 96
[2018-01-05] MEDS: REMOVE OLD NICOTINE PATCH T-DERMAL SCH (21:00)
[2018-01-05] MEDS: PRAZOSIN HCL 2 MG CAP PO SCH (22:13)
[2018-01-05] MEDS: PRAVASTATIN SOD 40 MG TAB PO SCH (22:15)
[2018-01-05] MEDS: diphenhydrAMINE HCL 50 MG CAP - HS PRN PO (23:54)
[2018-01-06] MEDS: LORazepam 0.5 MG TAB age > 65 yrs PO PRN (02:19)
[2018-01-06 05:17] VITALS: BP 129/68; PULSE 62; RESP 18; TEMP 97.7; O2SAT 85
[2018-01-06] MEDS: NICOTINE 21 MG/24 HR PATCH T-DERMAL SCH (09:00)
[2018-01-06] MEDS: GABAPENTIN 300 MG CAP PO SCH ×2 (09:53→20:08)
[2018-01-06] MEDS: QUEtiapine FUMARATE 25 MG TAB PO SCH ×3 (09:53→20:08)
[2018-01-06] MEDS: FAMOTIDINE 20 MG TAB PO SCH (09:53)
[2018-01-06] MEDS: CITALOPRAM HYDROBROMIDE 20 MG TAB PO SCH (09:53)
[2018-01-06] MEDS: GALANTAMINE HYDROBROMIDE 4 MG TAB PO SCH ×2 (09:54→20:08)
[2018-01-06] MEDS: LORazepam 2 MG/ML VIAL - age > 65 yrs IM PRN (14:11)
[2018-01-06 18:23] VITALS: BP 128/67; PULSE 78; RESP 16; TEMP 97.9; O2SAT 96
[2018-01-06] MEDS: PRAZOSIN HCL 2 MG CAP PO SCH (20:07)
[2018-01-06] MEDS: PRAVASTATIN SOD 40 MG TAB PO SCH (20:07)
[2018-01-06] MEDS: REMOVE OLD NICOTINE PATCH T-DERMAL SCH (20:13)
[2018-01-07 06:09] VITALS: BP 124/55; PULSE 69; RESP 17; TEMP 98.1; O2SAT 97
--- NOTE | 2018-01-07 07:52 | HHI.PYPN ---
Subjective Remarks Late entry for 01/06/18 -patient seen for follow, chart reviewed. Discussion nursing staff reported the patient had a compliant medications with no behavioral disturbances. Patient was found ambulating on the unit noted B, cooperative. Patient continues to be alert and oriented only to person, noted to be good spirits, denies any physical complaints, reported tolerating medications well. Patient states today that he had broken up with his girlfriend was wanted to contact her over the phone. Review of Systems Except as stated in HPI: all other systems reviewed are Neg Mental Status Examination Appearance: Appropriate Consciousness: Alert Orientation: Person, Place Motor Activity: Normal gait Speech: Unremarkable Language: Adequate Fund of Knowledge: Adequate Attention and Concentration: Easily Distracted Memory: Impaired Mood: Appropriate Affect: Appropriate Thought Process & Associations: Intact, Loose associations Thought Content: Appropriate Hallucination Type: None Delusion Type: None Suicidal Ideation: No Suicidal Plan: No Suicidal Intention: No Homicidal Ideation: No Homicidal Plan: No Homicidal Intention: No Insight: Poor Judgment: Poor Results Vitals/IOs Vital Signs Date Time Temp Pulse Resp B/P (MAP) Pulse Ox O2 Delivery O2 Flow Rate FiO2 01/07/18 06:09 98.1 69 17 124/55 (78) 97 Intake and Output 01/07/18 01/07/18 01/08/18 08:00 16:00 00:00 Intake Total 0 ml Balance 0 ml Assessment & Plan Problem List: (1) DEMENTIA IN OTH DISEASES CLASSD ELSWHR W BEHAVIORAL DISTURB ICD Codes: F02.81 - DEMENTIA IN OTH DISEASES CLASSD ELSWHR W BEHAVIORAL DISTURB Status: Acute (2) ALZHEIMER'S DISEASE WITH LATE ONSET ICD Codes: G30.1 - ALZHEIMER'S DISEASE WITH LATE ONSET Assessment & Plan Patient with no behavioral services recently, has been in better behavioral control. Patient requires redirection at times but not becoming agitated. Patient tolerated medications well. Continue current treatment. Continue monitor mood and behavior. Discharge planning in progress. Justification for Cont. Inpt. At risk of further decompensation at lower level of care. Request HC Surrog/Guard Advoc?: Yes Ananda Weiner MD Jan 07, 2018 07:52
[2018-01-07] MEDS: GALANTAMINE HYDROBROMIDE 4 MG TAB PO SCH ×2 (08:26→20:16)
[2018-01-07] MEDS: FAMOTIDINE 20 MG TAB PO SCH (08:26)
[2018-01-07] MEDS: NICOTINE 21 MG/24 HR PATCH T-DERMAL SCH (08:26)
[2018-01-07] MEDS: CITALOPRAM HYDROBROMIDE 20 MG TAB PO SCH (08:26)
[2018-01-07] MEDS: GABAPENTIN 300 MG CAP PO SCH ×2 (08:26→20:16)
[2018-01-07] MEDS: QUEtiapine FUMARATE 25 MG TAB PO SCH ×3 (08:26→20:16)
[2018-01-07] MEDS: LORazepam 0.5 MG TAB age > 65 yrs PO PRN (12:46)
[2018-01-07] MEDS: hydrOXYzine HCL 50 MG TAB PO PRN (15:12)
[2018-01-07 18:00] VITALS: BP 145/66; PULSE 72; RESP 16; TEMP 97.4; O2SAT 97
--- NOTE | 2018-01-07 18:11 | HHI.PYPN ---
Subjective Remarks Patient seen for follow, chart reviewed. Discussion nursing staff reported the patient had been doing well this morning was noted to be in good spirits, sleeping well. Patient was found to ambulate on the unit noted B, cooperative. Patient with no behavioral services has been cooperative with staff and compliant with treatment. Patient denies any physical complaints at this time continues to be alert and oriented only to person. Review of Systems Except as stated in HPI: all other systems reviewed are Neg Mental Status Examination Appearance: Appropriate Consciousness: Alert Orientation: Person, Place Motor Activity: Normal gait Speech: Unremarkable Language: Adequate Fund of Knowledge: Adequate Attention and Concentration: Easily Distracted Memory: Impaired Mood: Appropriate Affect: Appropriate Thought Process & Associations: Intact, Loose associations Thought Content: Appropriate Hallucination Type: None Delusion Type: None Suicidal Ideation: No Suicidal Plan: No Suicidal Intention: No Homicidal Ideation: No Homicidal Plan: No Homicidal Intention: No Insight: Poor Judgment: Poor Results Vitals/IOs Vital Signs Date Time Temp Pulse Resp B/P (MAP) Pulse Ox O2 Delivery O2 Flow Rate FiO2 01/07/18 06:09 98.1 69 17 124/55 (78) 97 Intake and Output 01/07/18 01/07/18 01/08/18 08:00 16:00 00:00 Intake Total 0 ml 720 ml 240 ml Balance 0 ml 720 ml 240 ml Assessment & Plan Problem List: (1) DEMENTIA IN OTH DISEASES CLASSD ELSWHR W BEHAVIORAL DISTURB ICD Codes: F02.81 - DEMENTIA IN OTH DISEASES CLASSD ELSWHR W BEHAVIORAL DISTURB Status: Acute (2) ALZHEIMER'S DISEASE WITH LATE ONSET ICD Codes: G30.1 - ALZHEIMER'S DISEASE WITH LATE ONSET Assessment & Plan Patient this time with no behavioral disturbances recently has been compliant with medications, and and cooperative with staff. Continue current treatment. Continue monitor mood and behavior. Discharge planning in progress. Justification for Cont. Inpt. At risk for further decompensation if at lower level of care Request HC Surrog/Guard Advoc?: Yes Ananda Weiner MD Jan 07, 2018 18:11
[2018-01-07] MEDS: REMOVE OLD NICOTINE PATCH T-DERMAL SCH (20:16)
[2018-01-07] MEDS: PRAVASTATIN SOD 40 MG TAB PO SCH (20:16)
[2018-01-07] MEDS: PRAZOSIN HCL 2 MG CAP PO SCH (20:16)
[2018-01-08 06:05] VITALS: BP 118/61; PULSE 63; RESP 15; TEMP 98.3; O2SAT 98
[2018-01-08] MEDS: FAMOTIDINE 20 MG TAB PO SCH (08:23)
[2018-01-08] MEDS: GALANTAMINE HYDROBROMIDE 4 MG TAB PO SCH ×2 (08:24→20:24)
[2018-01-08] MEDS: GABAPENTIN 300 MG CAP PO SCH ×2 (08:24→20:23)
[2018-01-08] MEDS: CITALOPRAM HYDROBROMIDE 20 MG TAB PO SCH (08:25)
[2018-01-08] MEDS: NICOTINE 21 MG/24 HR PATCH T-DERMAL SCH (08:28)
[2018-01-08] MEDS: QUEtiapine FUMARATE 25 MG TAB PO SCH ×3 (09:00→20:24)
--- NOTE | 2018-01-08 09:10 | HHI.PYPN ---
Subjective Remarks Chart reviewed. Discussed patient with nurse. Staff report that patient is intrusive. He will select one person and follow that patient around. Behavior has been less of a concern today. Patient was sitting in common area, pleasant and engaging in conversation. Per staff patient's daughter will be in to visit him today. She is working on placement possibly at [facility]. Mental Status Examination Appearance: Appropriate Consciousness: Alert Orientation: Person, Place Motor Activity: Normal gait Speech: Unremarkable Language: Adequate Fund of Knowledge: Adequate Attention and Concentration: Easily Distracted Memory: Impaired Mood: Appropriate Affect: Appropriate Thought Process & Associations: Intact, Loose associations Thought Content: Appropriate Hallucination Type: None Delusion Type: None Suicidal Ideation: No Suicidal Plan: No Suicidal Intention: No Homicidal Ideation: No Homicidal Plan: No Homicidal Intention: No Insight: Poor Judgment: Poor Results Vitals/IOs Vital Signs Date Time Temp Pulse Resp B/P (MAP) Pulse Ox O2 Delivery O2 Flow Rate FiO2 01/08/18 06:05 98.3 63 15 118/61 (80) 98 Intake and Output 01/08/18 01/08/18 01/09/18 08:00 16:00 00:00 Intake Total 120 ml Balance 120 ml Assessment & Plan Problem List: (1) DEMENTIA IN OTH DISEASES CLASSD ELSWHR W BEHAVIORAL DISTURB ICD Codes: F02.81 - DEMENTIA IN OTH DISEASES CLASSD ELSWHR W BEHAVIORAL DISTURB Status: Acute (2) ALZHEIMER'S DISEASE WITH LATE ONSET ICD Codes: G30.1 - ALZHEIMER'S DISEASE WITH LATE ONSET Assessment & Plan Will continue current treatment. Discharge plan in progress. Justification for Cont. Inpt. Moving patient to a lower level of care may cause decompensation. Request HC Surrog/Guard Advoc?: Yes Catherine Sandoval Jan 08, 2018 09:10
[2018-01-08] MEDS: LORazepam 0.5 MG TAB age > 65 yrs PO PRN (11:11)
[2018-01-08] MEDS: LORazepam 2 MG/ML VIAL - age > 65 yrs IM PRN (13:18)
[2018-01-08 20:00] VITALS: BP 141/66; PULSE 71; RESP 20
[2018-01-08] MEDS: PRAZOSIN HCL 2 MG CAP PO SCH (20:23)
[2018-01-08] MEDS: PRAVASTATIN SOD 40 MG TAB PO SCH (20:24)
[2018-01-08] MEDS: REMOVE OLD NICOTINE PATCH T-DERMAL SCH (21:00)
[2018-01-09 06:13] VITALS: BP 132/59; PULSE 78; RESP 17; TEMP 97.7; O2SAT 96
[2018-01-09] MEDS: GALANTAMINE HYDROBROMIDE 4 MG TAB PO SCH ×2 (08:01→20:29)
[2018-01-09] MEDS: CITALOPRAM HYDROBROMIDE 20 MG TAB PO SCH (08:01)
[2018-01-09] MEDS: LORazepam 0.5 MG TAB age > 65 yrs PO PRN (08:01)
[2018-01-09] MEDS: GABAPENTIN 300 MG CAP PO SCH ×2 (08:01→20:29)
[2018-01-09] MEDS: hydrOXYzine HCL 50 MG TAB PO PRN (08:01)
[2018-01-09] MEDS: FAMOTIDINE 20 MG TAB PO SCH (08:01)
[2018-01-09] MEDS: NICOTINE 21 MG/24 HR PATCH T-DERMAL SCH (08:06)
[2018-01-09] MEDS: QUEtiapine FUMARATE 25 MG TAB PO SCH ×3 (08:42→20:30)
--- NOTE | 2018-01-09 14:16 | HHI.PYPN ---
Subjective Remarks Reviewed electronic medical records and discuss case with staff. Nurse reports that patient had Ativan this morning and has been "more mellow". Patient has been compliant with medications. Patient is currently napping in a chair in the milieu. Appears to be in no apparent distress. No behaviors have been reported. Mental Status Examination Appearance: Appropriate Consciousness: Alert Orientation: Person, Place Motor Activity: Normal gait Speech: Unremarkable Language: Adequate Fund of Knowledge: Adequate Attention and Concentration: Easily Distracted Memory: Impaired Mood: Appropriate Affect: Appropriate Thought Process & Associations: Intact, Loose associations Thought Content: Appropriate Hallucination Type: None Delusion Type: None Suicidal Ideation: No Suicidal Plan: No Suicidal Intention: No Homicidal Ideation: No Homicidal Plan: No Homicidal Intention: No Insight: Poor Judgment: Poor Results Vitals/IOs Vital Signs Date Time Temp Pulse Resp B/P (MAP) Pulse Ox O2 Delivery O2 Flow Rate FiO2 01/09/18 06:13 97.7 78 17 132/59 (83) 96 Assessment & Plan Problem List: (1) DEMENTIA IN OTH DISEASES CLASSD ELSWHR W BEHAVIORAL DISTURB ICD Codes: F02.81 - DEMENTIA IN OTH DISEASES CLASSD ELSWHR W BEHAVIORAL DISTURB Status: Acute (2) ALZHEIMER'S DISEASE WITH LATE ONSET ICD Codes: G30.1 - ALZHEIMER'S DISEASE WITH LATE ONSET Assessment & Plan Estimated LOS: Continue with treatment as ordered. Attending psychiatrist will reevaluate tomorrow. Days Justification for Cont. Inpt. Moving this patient to a lower level of care would likely result in decompensation. Request HC Surrog/Guard Advoc?: Yes Yarelis Heath Jan 09, 2018 14:16
[2018-01-09 18:10] VITALS: BP 162/90; PULSE 68; RESP 18; TEMP 97.1; O2SAT 97
[2018-01-09] MEDS: PRAZOSIN HCL 2 MG CAP PO SCH (20:29)
[2018-01-09] MEDS: PRAVASTATIN SOD 40 MG TAB PO SCH (20:30)
[2018-01-09] MEDS: REMOVE OLD NICOTINE PATCH T-DERMAL SCH (21:00)
[2018-01-10 06:08] VITALS: BP 135/59; PULSE 63; RESP 17; TEMP 97.6; O2SAT 95
[2018-01-10] MEDS: GABAPENTIN 300 MG CAP PO SCH ×2 (08:43→21:14)
[2018-01-10] MEDS: NICOTINE 21 MG/24 HR PATCH T-DERMAL SCH (08:43)
[2018-01-10] MEDS: GALANTAMINE HYDROBROMIDE 4 MG TAB PO SCH ×2 (08:43→21:14)
[2018-01-10] MEDS: CITALOPRAM HYDROBROMIDE 20 MG TAB PO SCH (08:43)
[2018-01-10] MEDS: QUEtiapine FUMARATE 25 MG TAB PO SCH ×3 (08:43→21:14)
[2018-01-10] MEDS: FAMOTIDINE 20 MG TAB PO SCH (08:43)
[2018-01-10] MEDS: LORazepam 0.5 MG TAB age > 65 yrs PO PRN (10:15)
[2018-01-10] MEDS: hydrOXYzine HCL 50 MG TAB PO PRN (17:52)
[2018-01-10 18:27] VITALS: BP 143/69; PULSE 65; RESP 17; TEMP 97.4; O2SAT 96
[2018-01-10] MEDS: REMOVE OLD NICOTINE PATCH T-DERMAL SCH (21:00)
[2018-01-10] MEDS: diphenhydrAMINE HCL 50 MG CAP - HS PRN PO (21:14)
[2018-01-10] MEDS: PRAVASTATIN SOD 40 MG TAB PO SCH (21:14)
[2018-01-10] MEDS: PRAZOSIN HCL 2 MG CAP PO SCH (21:14)
[2018-01-10] MEDS: LORazepam 2 MG/ML VIAL - age > 65 yrs IM PRN (21:47)
--- NOTE | 2018-01-10 22:03 | HHI.PYPN ---
Subjective Remarks Patient seen for follow up; chart reviewed. Discussion nursing staff reported the patient has had good behavioral control, no agitation complaint with treatment. Patient was found in the room to be calm and cooperative. Patient found to be in good spirits, denies any physical complaints at this time. Patient continues to be confused and alert and oriented only to person. Review of Systems Except as stated in HPI: all other systems reviewed are Neg Mental Status Examination Appearance: Appropriate Consciousness: Alert Orientation: Person, Place Motor Activity: Normal gait Speech: Unremarkable Language: Adequate Fund of Knowledge: Adequate Attention and Concentration: Easily Distracted Memory: Impaired Mood: Appropriate Affect: Appropriate Thought Process & Associations: Intact, Loose associations Thought Content: Appropriate Hallucination Type: None Delusion Type: None Suicidal Ideation: No Suicidal Plan: No Suicidal Intention: No Homicidal Ideation: No Homicidal Plan: No Homicidal Intention: No Insight: Poor Judgment: Poor Results Vitals/IOs Vital Signs Date Time Temp Pulse Resp B/P (MAP) Pulse Ox O2 Delivery O2 Flow Rate FiO2 01/10/18 18:27 97.4 65 17 143/69 (93) 96 Intake and Output 01/10/18 01/10/18 01/10/18 07:59 15:59 23:59 Intake Total 960 ml 240 ml Balance 960 ml 240 ml Assessment & Plan Problem List: (1) DEMENTIA IN OTH DISEASES CLASSD ELSWHR W BEHAVIORAL DISTURB ICD Codes: F02.81 - DEMENTIA IN OTH DISEASES CLASSD ELSWHR W BEHAVIORAL DISTURB Status: Acute (2) ALZHEIMER'S DISEASE WITH LATE ONSET ICD Codes: G30.1 - ALZHEIMER'S DISEASE WITH LATE ONSET Assessment & Plan Patient to continue current treatment. Patient continues to await placement. Continue to monitor mood and behavior. Discharge planning to progress. Justification for Cont. Inpt. To be determined. Request HC Surrog/Guard Advoc?: Yes Ananda Weiner MD Jan 10, 2018 22:03
[2018-01-11] MEDS: CITALOPRAM HYDROBROMIDE 20 MG TAB PO SCH (08:11)
[2018-01-11] MEDS: GABAPENTIN 300 MG CAP PO SCH ×2 (08:11→20:22)
[2018-01-11] MEDS: QUEtiapine FUMARATE 25 MG TAB PO SCH ×3 (08:11→20:23)
[2018-01-11] MEDS: FAMOTIDINE 20 MG TAB PO SCH (08:11)
[2018-01-11] MEDS: GALANTAMINE HYDROBROMIDE 4 MG TAB PO SCH ×2 (08:11→20:22)
[2018-01-11] MEDS: NICOTINE 21 MG/24 HR PATCH T-DERMAL SCH (08:11)
--- NOTE | 2018-01-11 09:18 | PD.WCN.NOT ---
Wound Consult Description: Consult for WOUND MANAGEMENT of sacral decubitus per ROBERT Nolasco Communicated with: Sudha Rich RN Recommendation: Cleanse skin tear between left thumb and first digit daily with NS or wound cleanser. Apply Single layer Xeroform to skin tear daily. Secure with dry cover and rolled gauze. Date dressing. Additional Information: Patient seen in common room of [facility] [place] [place] for skin tear between the left thumb and index finger. Skin tear was cleansed with wound cleanser and gauze with flap able to be placed back over the wound bed which is partial thickness skin loss with minimal sanguinous active drainage and red non granulating tissue. A single layer of Xeroform was placed over the skin flap covering the wound be with un-approximated edges. A folded gauze was placed over the skin tear and this was secured with a rolled gauze dressing and tape. Vani Panda [facility] January 11, 2018 09:18
[2018-01-11] MEDS: LORazepam 0.5 MG TAB age > 65 yrs PO PRN (12:49)
--- NOTE | 2018-01-11 17:27 | HHI.PYPN ---
Subjective Remarks Patient seen for follow-up, chart reviewed. Discussion with nursing staff reported that patient with no behavioral dyscontrol, med compliant. Patient was found socializing with other patients in day room, calm and cooperative. Patient noted to be in good spirits, reports good mood, denies any physical complaints. Continues to be alert and oriented only to person. Review of Systems Except as stated in HPI: all other systems reviewed are Neg Mental Status Examination Appearance: Appropriate Consciousness: Alert Orientation: Person, Place Motor Activity: Normal gait Speech: Unremarkable Language: Adequate Fund of Knowledge: Adequate Attention and Concentration: Easily Distracted Memory: Impaired Mood: Appropriate Affect: Appropriate Thought Process & Associations: Intact, Loose associations Thought Content: Appropriate Hallucination Type: None Delusion Type: None Suicidal Ideation: No Suicidal Plan: No Suicidal Intention: No Homicidal Ideation: No Homicidal Plan: No Homicidal Intention: No Insight: Poor Judgment: Poor Results Vitals/IOs Vital Signs Date Time Temp Pulse Resp B/P (MAP) Pulse Ox O2 Delivery O2 Flow Rate FiO2 01/10/18 18:27 97.4 65 17 143/69 (93) 96 Intake and Output 01/11/18 01/11/18 01/12/18 08:00 16:00 00:00 Intake Total 720 ml 120 ml Balance 720 ml 120 ml Assessment & Plan Problem List: (1) DEMENTIA IN OTH DISEASES CLASSD ELSWHR W BEHAVIORAL DISTURB ICD Codes: F02.81 - DEMENTIA IN OTH DISEASES CLASSD ELSWHR W BEHAVIORAL DISTURB Status: Acute (2) ALZHEIMER'S DISEASE WITH LATE ONSET ICD Codes: G30.1 - ALZHEIMER'S DISEASE WITH LATE ONSET Assessment & Plan Patient continues with baseline confusion secondary to neurocognitive deficits. Patient with good behavioral control, redirectible when perseverative on exit seeking. Continue current treatment, continue to monitor mood and behavior. Discharge planning in progress. Justification for Cont. Inpt. At risk for further decompensation at lower level of care. Request HC Surrog/Guard Advoc?: Yes Ananda Weiner MD January 11, 2018 17:27
[2018-01-11 17:47] VITALS: BP 165/74; PULSE 66; RESP 18; TEMP 97.1; O2SAT 93
[2018-01-11] MEDS: PRAZOSIN HCL 2 MG CAP PO SCH (20:22)
[2018-01-11] MEDS: PRAVASTATIN SOD 40 MG TAB PO SCH (20:23)
[2018-01-11] MEDS: REMOVE OLD NICOTINE PATCH T-DERMAL SCH (21:00)
[2018-01-12 05:21] VITALS: BP 109/56; PULSE 62; RESP 18; TEMP 98.3; O2SAT 93
[2018-01-12] MEDS ORDERED: SERO25TA PO ×3 (08:30)
[2018-01-12] MEDS ORDERED: GALA4TAB PO (08:30)
[2018-01-12] MEDS ORDERED: PRAV40TA PO (08:30)
[2018-01-12] MEDS ORDERED: GABA600T PO (08:30)
[2018-01-12] MEDS ORDERED: CITA20TA4 PO (08:30)
[2018-01-12] MEDS ORDERED: FAMO20TA2 PO (08:30)
[2018-01-12] MEDS ORDERED: PRAZ2CAP PO (08:30)
--- NOTE | 2018-01-12 08:30 | HHI.DS ---
Psychiatry Discharge Summary Inpatient Psychiatric care?: Yes Advance Directive: No Reason Not Provided: DECLINED Mental Health AdvanceDirective: No Health Care Proxy: Yes Admission Admission Date Dec 12, 2017 at 02:55 Admission Diagnosis: (1) DEMENTIA IN OTH DISEASES CLASSD ELSWHR W BEHAVIORAL DISTURB ICD Code: F02.81 - DEMENTIA IN OTH DISEASES CLASSD ELSWHR W BEHAVIORAL DISTURB Brief History Patient is an 87-year-old white male who comes here under [place] act by the [facility]'s office dated 12/11/17 at 1544 hrs. document reviewed stating this is the second time I responded to this address reference the subject having bad outbursts and anger issues associated with dementia elderly female has attempted to work with [employer] and other resources however still has not been able to sign anything in place for further assistance. Patient seen screened in the ED urine toxicology negative. At the present time patient sitting quietly in chair in day room nurse Kaiden present throughout session patient's calm with me though he has recently received a when necessary of Haldol and Benadryl for out of control behavior. Is calm but this time though diffusely confused to place time and situation has no recollection of his behaviors that brought him to this place. He continues to show exits seeking behavior is getting somewhat irritable with this. He denies suicidality denies voices or visions, denies past psychiatric contact. 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 At this time patient meets criteria for inpatient psychiatric hospitalization of the [place] act I'll do first opinion request second opinion. It really does not have capacity thus I'll ask for healthcare surrogate and guardian advocate. He did need to meet with patient's caregiver and discuss with her diagnosis medication treatment and discharge planning and placement Tobacco Use In Past 30 Days: No Tobacco Past 30 Days Alcohol Use: Never Results Blood Pressure 109 / 56 Vital Signs Date Time Temp Pulse Resp B/P (MAP) Pulse Ox O2 Delivery O2 Flow Rate FiO2 01/12/18 05:21 98.3 62 18 109/56 (73) 93 Laboratory Results Test 12/13/17 08:14 Cholesterol Level 169 MG/DL (120-200) HDL Cholesterol 57.0 MG/DL (40.0-60.0) Hemoglobin A1c 5.4 % (4.3-6.0) LDL Cholesterol 98 MG/DL (0-99) Triglycerides Level 72 MG/DL (42-150) Imaging Last Impressions Chest X-Ray 12/27/17 0000 Signed Impressions: Service Date/Time: Wednesday, December 27, 2017 22:50 - CONCLUSION: Right greater than left basilar consolidation. Rolf Bassett MD Head CT 12/18/17 0000 Signed Impressions: Service Date/Time: Monday, December 18, 2017 01:12 - CONCLUSION: Diffuse atrophy. No acute intracranial findings. Skip Casiano MD Medications Approp Antipsych med options 1 - Minimum of three failed multiple trials of monotherapy. 2 - Documented plan to taper to monotherapy due to previous use of multiple meds OR cross-taper in progress at D/C. 3 - Documentation of augmentation of Clozapine. 4 - Justification other than those listed in allowable values 1-3, document here : Discharge Pt Condition on Discharge: Stable Discharge Disposition: Discharge to SNF Discharge Instructions Diet Instructions: Heart Healthy Diet Activities you can perform: Weight Bearing as Mounika Scheduled Appointment: At [facility] Mental Status Examination Appearance: Appropriate Consciousness: Alert Orientation: Person, Place Motor Activity: Normal gait Speech: Unremarkable Language: Adequate Fund of Knowledge: Adequate Attention and Concentration: Easily Distracted Memory: Impaired Mood: Appropriate Affect: Appropriate Thought Process & Associations: Intact, Loose associations Thought Content: Appropriate Hallucination Type: None Delusion Type: None Suicidal Ideation: No Suicidal Plan: No Suicidal Intention: No Homicidal Ideation: No Homicidal Plan: No Homicidal Intention: No Insight: Poor Judgment: Poor Discharge/Advance Care Plan Health Problems: (1) DEMENTIA IN OTH DISEASES CLASSD ELSWHR W BEHAVIORAL DISTURB (2) ALZHEIMER'S DISEASE WITH LATE ONSET Goals to promote your health * To prevent worsening of your condition and complications * To maintain your health at the optimal level Directions to meet your goals Take your medications as prescribed Follow your dietary instruction Follow activity as directed Keep your appointments as scheduled Take your immunizations and boosters as scheduled If your symptoms worsen call your PCP, if no PCP go to Urgent Care Center or Emergency Room For 05/04 questions related to your inpatient stay or results of tests pending at discharge, please contact Dr. Ananda Weiner at Smoking is Dangerous to Your Health. Avoid second hand smoking Ananda Weiner MD January 12, 2018 08:30
[2018-01-12] MEDS: NICOTINE 21 MG/24 HR PATCH T-DERMAL SCH (09:00)
[2018-01-12] MEDS: FAMOTIDINE 20 MG TAB PO SCH (09:32)
[2018-01-12] MEDS: CITALOPRAM HYDROBROMIDE 20 MG TAB PO SCH (09:32)
[2018-01-12] MEDS: GABAPENTIN 300 MG CAP PO SCH (09:32)
[2018-01-12] MEDS: GALANTAMINE HYDROBROMIDE 4 MG TAB PO SCH (09:32)
[2018-01-12] MEDS: QUEtiapine FUMARATE 25 MG TAB PO SCH (09:33)
--- NOTE | 2018-01-12 15:17 | PD.TTN ---
Patient Problems 1. Discharge planning 2. Medication compliance 3. Knowledge deficit 4. Lack of coping skills Progress Toward Goals Provider Present: Dr. Asuncion Weiner Provider Input: 01/12/18 pt has been same, he is ready for discharge and accepted today to [facility] leaving today 01/05/18: Increase afternoon Meds 01/03/18 remains a placement issue 12/29/17 patient remains aggitated and getting medications adjusted 12/27/17 patient is in need for med adjusment and improve his behavioral disturbances, medications are being titrated 12/20/17 still medications to be adjusted to help working towards placement Nurse(s) Input: 12/27/17 patient becomes more irritated in afternoon and needs lots of re-direction when he focuses on exit seeking/discharge 12/20/17 received an ETO over weekend Psychiatric Counselors Present: ANDREA WatsonW, Nevin Aguilar, [facility], Marlo Person Jr., [facility], Myrna Canseco, [facility], Nancy Almaraz, [facility] Psych Therapist Input: 01/05/18: Remains sundowning, somewhat redirectable. 01/03/18 patient remains without insight and in need of redirection to cooperate, he is wanting to leave and remains a placement issue and daughter struggling with arranging his benefits 12/29/17 patient is in need for placement and behavioral improvement, [facility] and [facility] would consider patient but could not reach dajosyther yet 12/27/17 patient is in need of good placement and ashleyjosykika is working with an news wire photo operator to get access to his bank accounts to figure what CORRECTION he can afford 12/20/17 fererrals sent to local facilities and to [facility] ashleymira is actively working on a guardianship and is aware the difficulty with placement, patient remains with no insight, intrusive and in need for ETO Group Spec/RT/OT/COVARRUBIAS Present: Mesha Vaughn, [employer], Rafi Hendricks, OT Group Spec/RT/OT/COVARRUBIAS Input: 01/05/18: Unpredictabe behaviors: Frequently needs redirection. 01/04/48 patient attends select groups when attending needs little redirection 12/29/17 attends select groups activities and easily redirected in groups 12/27/17 Patient is visible in milieu and social with select patients and attends select group activities 12/20/17 does not attend groups Documentation Scribe: Alena Solomon LCSW January 12, 2018 15:17
== END 2018-01-12 10:40 | DRG 56 ==
LOC: NEPD 17:09 → NEDA 12-12 02:55 → H260 12-12 05:00 → H250 12-15 15:30 → H4EA 12-17 18:20 → H250 12-20 11:14 → H4EA 12-27 23:45 → H260 12-30 17:41 → H250 01-02 20:02 → H260 01-05 13:00 → H250 01-06 14:00
PROVIDERS: ADMIT Student in an Organized Health Care Education/Training Program; ATTEND Student in an Organized Health Care Education/Training Program
DX: G30.1 Alzheimer's disease with late onset (principal); J69.0 Pneumonitis due to inhalation of food and vomit; F02.81 Dementia in other diseases classified elsewhere, unspecified severity, with behavioral disturbance; J44.9 Chronic obstructive pulmonary disease, unspecified; H91.90 Unspecified hearing loss, unspecified ear; N40.0 Benign prostatic hyperplasia without lower urinary tract symptoms; N18.3 Chronic kidney disease, stage 3 (moderate); M19.90 Unspecified osteoarthritis, unspecified site; E78.5 Hyperlipidemia, unspecified; S60.512A Abrasion of left hand, initial encounter; W19.XXXA Unspecified fall, initial encounter
CPT/HCPCS: 36600; 70450; 71045; 80048; 80053; 80061; 80307; 81001; 82550; 82805; 83036; 84443; 85025; 93005; 96372; J1630; J2060; J2543; Q0163